=== PATIENT | female | born 1985 | race Caucasian/White ===

== ENCOUNTER 2020-04-29 07:17 | Outpatient (CLI) | payer OTHER, SELFPAY ==
[2020-04-29 08:00] LABS: Basophils Absolute Auto 0.1 K/mm3 (0.0-0.1); Basophils Percent Auto 1.2 % (0.2-1.2); Eosinophils Absolute Auto 0.2 K/mm3 (0-0.3); Eosinophils Percent Auto 2.6 % (0-4.4); Hematocrit 43.5 % (37.0-47.0); Immature Granulocyte Absolute 0.02 K/mm3 (0.00-0.031); Immature Granulocyte Percent A 0.4 % (0-0.5); Lymphocytes Absolute Auto 1.82 K/mm3 (0.9-3.2); Mean Corpuscular HGB Conc 32.2 g/dl (32-36); Mean Corpuscular Hemoglobin 25.8 pg (26-34); Mean Corpuscular Volume 80.1 fl (80-100); Mean Platelet Volume 9.1 fl (7.4-10.4); Monocytes Absolute Auto 0.4 K/mm3 (0.1-0.6); Monocytes Percent Auto 7.4 % (2.6-8.5); Neutrophils Absolute Auto 3.2 K/mm3 (1.3-6.7); Neutrophils Percent Auto 56.4 % (45.5-73.1); Platelet Count Result 253 k/mm3 (150-375); Red Blood Count 5.43 M/mm3 (4.2-5.4); Red Cell Distribution Width 13.7 % (11.5-14.5); White Blood Count 5.7 K/mm3 (4.5-10.0)
[2020-04-29 08:10] LABS: Alanine Aminotransferase 22 U/L (4-35); Albumin Level 4.2 g/dL (3.5-5.1); Alkaline Phosphatase 53 U/L (38-126); Anion Gap 10.2 mmol/L (7-16); Aspartate Amino Transferase 21 U/L (14-36); Bilirubin,Total 0.5 mg/dL (0.2-1.3); Blood Urea Nitrogen 15 mg/dL (7-17); Calcium 8.8 mg/dL (8.4-10.2); Carbon Dioxide 26 mmol/L (22-30); Chloride 103 mmol/L (98-107); Cholesterol 191 mg/dL (0-200); Estimated Glomerular Filt Rate > 60; Glucose 120 mg/dL (65-105); HDL Direct 39 mg/dL; Potassium 4.2 mmol/L (3.4-5.0); Sodium 135 mmol/L (137-145); Triglycerides 114 mg/dL (<150)
[2020-04-29 08:18] LABS: Hemoglobin A1C 5.5 % (<5.7)
[2020-04-29 08:21] LABS: LDL Cholesterol Direct 118 mg/dL
== END 2020-04-29 07:18 | disposition home or self-care (01) ==
LOC: ANHIMG 07:21 → ANHLAB 07:32
PROVIDERS: PCP Physician Assistant; Visit Provider Physician Assistant
DX: R73.09 Other abnormal glucose (principal); Z79.899 Other long term (current) drug therapy; Z13.220 Encounter for screening for lipoid disorders
CPT/HCPCS: 36415; 80053; 80061; 83036; 84443; 85025

== ENCOUNTER 2020-10-10 09:33 | Outpatient (CLI) | payer OTHER, SELFPAY | END 2020-10-10 09:34 | disposition home or self-care (01) | PROVIDERS: PCP Physician Assistant; Visit Provider Obstetrics & Gynecology | DX: Z32.00 Encounter for pregnancy test, result unknown (principal) | CPT/HCPCS: 36415; 84702 ==

== ENCOUNTER 2020-10-14 07:43 | Outpatient (CLI) | payer OTHER, SELFPAY ==
[2020-10-14 08:06] LABS: Hematocrit 40.1 % (37.0-47.0); Hemoglobin 13.4 g/dL (12.0-15.0); Mean Corpuscular HGB Conc 33.4 g/dl (32-36); Mean Corpuscular Hemoglobin 27.4 pg (26-34); Platelet Count Result 275 k/mm3 (150-375); Red Blood Count 4.89 M/mm3 (4.2-5.4); White Blood Count 10.1 K/mm3 (4.5-10.0)
[2020-10-14 09:04] LABS: HIV 1/2 Ab P24 Ag Result Negative (Negative)
[2020-10-14 09:22] LABS: Hepatitis B Surface Antigen Negative (Negative); Rubella IgG Antibody 17.4 IU/ML
[2020-10-14 10:24] LABS: Rapid Plasma Reagin Non-Reactive (NonReactive)
[2020-10-17 05:40] LABS: Amphetamines NEGATIVE ng/mL (<500); Barbiturates NEGATIVE ng/mL (<300); Benzodiazepines NEGATIVE ng/mL (<100); Cocaine Metabolite NEGATIVE ng/mL (<150); Marijuana Metabolite NEGATIVE ng/mL (<20); Methadone Metabolite NEGATIVE ng/mL (<100); Opiates NEGATIVE ng/mL (<100); Oxidant NEGATIVE mcg/mL (<200); pH 5.6 (4.5-9.0)
== END 2020-10-14 07:44 | disposition home or self-care (01) ==
PROVIDERS: PCP Physician Assistant; Visit Provider Obstetrics & Gynecology
DX: Z36.89 Encounter for other specified antenatal screening (principal)
CPT/HCPCS: 36415; 80299; 85027; 86592; 86703; 86762; 86850; 86900; 86901; 87086; 87340; G0432

== ENCOUNTER 2020-12-31 09:11 | Outpatient (CLI) | payer OTHER, SELFPAY ==
[2020-12-31 11:03] LABS: Hematocrit 35.4 % (37.0-47.0)
[2020-12-31 11:17] LABS: Glucose 1 Hour PP 50gm Dose 194 mg/dL
[2020-12-31 11:27] LABS: Hemoglobin A1C 5.1 % (<5.7)
[2020-12-31 11:56] LABS: HIV 1/2 Ab P24 Ag Result Negative (Negative)
== END 2020-12-31 09:12 | disposition home or self-care (01) ==
PROVIDERS: PCP Physician Assistant; Visit Provider Obstetrics & Gynecology
DX: Z34.90 Encounter for supervision of normal pregnancy, unspecified, unspecified trimester (principal); Z3A.00 Weeks of gestation of pregnancy not specified
CPT/HCPCS: 36415; 82947; 83036; 85014; 85018; 86703; G0432

== ENCOUNTER 2021-03-10 14:20 | Outpatient (RCR) | payer OTHER, SELFPAY ==
[2021-01-25 17:08] VITALS: BP 128/79; PULSE 70
[2021-01-31 17:21] VITALS: BP 124/73; PULSE 86
[2021-02-06 17:02] VITALS: BP 122/67; PULSE 78
[2021-02-09 17:07] VITALS: BP 129/78; PULSE 83
[2021-02-17 16:50] VITALS: BP 130/70; PULSE 77
[2021-02-21 17:15] VITALS: BP 123/75; PULSE 81
[2021-02-24 17:00] VITALS: BP 124/64; PULSE 79
[2021-02-28 12:13] VITALS: BP 127/71; PULSE 86
[2021-03-07 16:46] VITALS: BP 116/69; PULSE 71
[2021-03-10 16:41] VITALS: BP 131/75; PULSE 71
== END 2021-03-17 07:52 | disposition home or self-care (01) ==
LOC: ANHOBOP 14:20
PROVIDERS: PCP Physician Assistant; Visit Provider Obstetrics & Gynecology
DX: O24.419 Gestational diabetes mellitus in pregnancy, unspecified control (principal); Z3A.32 32 weeks gestation of pregnancy; Z3A.33 33 weeks gestation of pregnancy; Z3A.34 34 weeks gestation of pregnancy; Z3A.35 35 weeks gestation of pregnancy; Z3A.36 36 weeks gestation of pregnancy; Z3A.37 37 weeks gestation of pregnancy; Z3A.39 39 weeks gestation of pregnancy
CPT/HCPCS: 59025

== ENCOUNTER 2021-03-15 15:42 | Inpatient (IN) | payer OTHER, SELFPAY ==
[2021-03-15] VITALS (17 sets, daily range): BP systolic 122–156; BP diastolic 69–92; PULSE 73–102; RESP 18–20; TEMP 36.4–36.6; BMI 45.2
--- NOTE | ~2021-03-15 | XR_ITS ---
XR abdomen/kub 1V 03/17/2021 11:32 INDICATION: Flank pain TECHNIQUE: KUB COMPARISON: No prior studies for comparison. FINDINGS: Bowel gas pattern is normal. No IUD identified. There is no evidence of free air, mass, org anomegaly, ascites or obstruction. No abnormal calculi are seen. The bones appear intact. IMPRESSION: 1: No acute abdominal abnormality identified. No IUD visualized. Reviewed, dictated and finalized at location A.
[2021-03-15 16:17] LABS: Glucose Point of Care 91 mg/dl (65-105)
[2021-03-15] MEDS: DINOPROSTONE 10 MG VAG INSERT VAGINAL (16:21)
[2021-03-15 16:23] LABS: Basophils Absolute Auto 0.1 K/mm3 (0.0-0.1); Basophils Percent Auto 0.5 % (0.2-1.2); Eosinophils Absolute Auto 0.1 K/mm3 (0-0.3); Eosinophils Percent Auto 0.7 % (0-4.4); Hemoglobin 12.5 g/dL (12.0-15.0); Immature Granulocyte Absolute 0.05 K/mm3 (0.00-0.031); Immature Granulocyte Percent A 0.5 % (0-0.5); Lymphocytes Absolute Auto 1.43 K/mm3 (0.9-3.2); Lymphocytes Percent Auto 13.5 % (18.3-44.2); Mean Corpuscular HGB Conc 32.9 g/dl (32-36); Mean Corpuscular Volume 82.1 fl (80-100); Mean Platelet Volume 9.7 fl (7.4-10.4); Monocytes Absolute Auto 0.6 K/mm3 (0.1-0.6); Monocytes Percent Auto 5.6 % (2.6-8.5); Neutrophils Absolute Auto 8.4 K/mm3 (1.3-6.7); Neutrophils Percent Auto 79.2 % (45.5-73.1); Platelet Count Result 222 k/mm3 (150-375); Red Blood Count 4.63 M/mm3 (4.2-5.4); Red Cell Distribution Width 14.5 % (11.5-14.5); White Blood Count 10.6 K/mm3 (4.5-10.0)
--- NOTE | 2021-03-15 16:34 | LDADM ---
This patient, Kathie Sims, was admitted to Labor/Delivery/Recovery 108 on 03/15/21 at 15:42. Plans for labor, pain management and were discussed with patient. Patient/family oriented to hospital policies and general routines including ID bracelet, bed and alarms, visiting hours, pain management, procedures, bathroom and other care routines, personal items, smoking policy, room service/diet and guest tray routines, security routines, and visiting hours. Patient/Family are encouraged to report perceived risks to care and to ask questions if they do not understand what they are told or what they should do. See OBIX for further documentation.
--- NOTE | 2021-03-15 17:45 | WPDOBADMIT ---
Obstetrics - Admit Note Admission Note: record reviewed. Additions to the history and/or subsequent changes in the physical findings follow. 36 y/o at 39 5/7 weeks here for induction of labor. A2DM with good glycemic control on insulin. GBS neg. AVSS NST reactive TOCO: irregular contractions ABD soft, nontender, gravid, vertex EXT nontender Cervix 50/-3 per RN. Bedside ultrasound exam by me confirms cephalic presentation. A: IUP at term with A2DM, here for induction of labor. P: Cervidil Plan oxytocin afterward. Continue accuchecks. Anticipate .
[2021-03-15 21:21] LABS: Glucose Point of Care 82 mg/dl (65-105)
[2021-03-15 21:21] LABS: Glucose Point of Care 62 mg/dl (65-105)
[2021-03-15] MEDS: ACETAMINOPHEN 500 MG TABLET 1000 MG PO (22:02)
[2021-03-15 23:40] LABS: Glucose Point of Care 100 mg/dl (65-105)
[2021-03-16] VITALS (113 sets, daily range): BP systolic 113–150; BP diastolic 49–92; PULSE 54–130; RESP 16–20; TEMP 36.3–37.1; O2SAT 82–100
[2021-03-16 04:23] LABS: Glucose Point of Care 90 mg/dl (65-105)
[2021-03-16] MEDS: LACTATED RINGERS 1,000 ML 125 ML IV CONT ×2 (05:20→13:23)
[2021-03-16] MEDS: OXYTOCIN 30 UNITS/NS 500 ML 30 UNITS/500 ML BAG IV CONT (05:21)
[2021-03-16 06:49] LABS: Rapid Plasma Reagin Non-Reactive (NonReactive)
[2021-03-16 08:10] LABS: Glucose Point of Care 84 mg/dl (65-105)
--- NOTE | 2021-03-16 08:35 | PM.OBPNLAB ---
Pain Control Date/time seen: 03/16/21 8303 Comments: Had contractions all night. Had a glc 62, responded to treatment. Pelvic Exam Dilation (cm): 2 Effacement (%): 50 station: -2 Comments: AROM with clear fluid. IUPC placed. Contractions Contraction frequency: 3 Contraction pattern: Regular Status status: Category l Assessment and Plan Plan: continuous present management Comments: A: IUP at term. Good glycemic control, overall. P: Oxytocin. Continue accuchecks. Anticipate .
[2021-03-16] MEDS: fentaNYL CITRATE INJ (*CRX) 100 MCG/2 ML VIAL 50 MCG IV PUSH (08:44)
[2021-03-16 10:15] LABS: Glucose Point of Care 91 mg/dl (65-105)
--- NOTE | 2021-03-16 10:53 | WPDANESEPP ---
Anes - Eval Pre Procedure Date/Time: 03/16/21 10:53 Pre Op Diagnosis: induction of labor Patient Data Age: 36 Gender: F Height: 1.78 m Weight: 143 kg Last Vital Signs Temp 37.1 C 03/16/21 08:03 Pulse 75 03/16/21 10:51 Resp 18 03/15/21 23:19 BP 142/75 H 03/16/21 10:51 Pulse Ox 100 03/16/21 10:48 Allergies Allergy/AdvReac Type Severity Reaction Status Date / Time Sulfa (Sulfonamide Allergy Unknown Hives Verified 02/14/21 15:47 Antibiotics) sulfanilamide Allergy Unknown Hives Verified 02/14/21 15:47 Home Medications Medication Instructions Recorded Confirmed Type PNV cmb#95-ferrous fumarate-FA 1 tablet PO DAILY 01/25/21 03/15/21 History [] cetirizine [Zyrtec] 10 mg PO HS 01/25/21 03/15/21 History docusate sodium [Colace] 100 mg PO BID 01/25/21 03/15/21 History famotidine [Pepcid] 20 mg PO BID 01/25/21 03/15/21 History insulin NPH isoph U-100 human 20 unit SUBCUT QPM 01/25/21 03/15/21 History [Novolin N NPH U-100 Insulin] insulin NPH isoph U-100 human 50 unit SUBCUT QAM 01/25/21 03/15/21 History [Novolin N NPH U-100 Insulin] insulin regular human [Novolin R 20 unit SUBCUT QPM 01/25/21 03/15/21 History Regular U-100 Insuln] insulin regular human [Novolin R 30 unit SUBCUT QAM 01/25/21 03/15/21 History Regular U-100 Insuln] omeprazole 20 mg PO PRN PRN 01/25/21 03/15/21 History ondansetron HCl [Zofran] 4 mg PO Q6H PRN 01/25/21 03/15/21 History doxylamine succinate [Unisom 25 mg PO HS 01/31/21 03/15/21 History (doxylamine)] Laboratory Tests 03/15/21 03/15/21 03/15/21 16:13 16:14 16:14 WBC 10.6 K/mm3 H K/mm3 (4.5-10.0) RBC 4.63 M/mm3 M/mm3 (4.2-5.4) Hgb 12.5 g/dL g/dL (12.0-15.0) Hct 38.0 % % (37.0-47.0) MCV 82.1 fl fl (80-100) MCH 27.0 pg pg (26-34) MCHC 32.9 g/dl g/dl (32-36) RDW 14.5 % % (11.5-14.5) Plt Count 222 k/mm3 k/mm3 (150-375) MPV 9.7 fl fl (7.4-10.4) Immature Gran % (Auto) 0.5 % % (0-0.5) Neut % (Auto) 79.2 % H % (45.5-73.1) Lymph % (Auto) 13.5 % L % (18.3-44.2) [place] % (Auto) 5.6 % % (2.6-8.5) Eos % (Auto) 0.7 % % (0-4.4) Baso % (Auto) 0.5 % % (0.2-1.2) Lymph # (Auto) 1.43 K/mm3 K/mm3 (0.9-3.2) [place] # (Auto) 0.6 K/mm3 K/mm3 (0.1-0.6) Eos # (Auto) 0.1 K/mm3 K/mm3 (0-0.3) Baso # (Auto) 0.1 K/mm3 K/mm3 (0.0-0.1) Abs Immat Gran (auto) 0.05 K/mm3 H K/mm3 (0.00-0.031) Absolute Neuts (auto) 8.4 K/mm3 H K/mm3 (1.3-6.7) Absolute Nucleated RBC 0.0 K/mm3 K/mm3 (0.0-0.012) Nucleated RBC % 0.0 % % (0.0-0.2) POC Capillary Glucose 91 mg/dl mg/dl (65-105) RPR Non-reactive (NonReactive) Blood Type Antibody Screen 03/15/21 03/15/21 03/15/21 16:14 20:39 21:16 WBC RBC Hgb Hct MCV MCH MCHC RDW Plt Count MPV Immature Gran % (Auto) Neut % (Auto) Lymph % (Auto) [place] % (Auto) Eos % (Auto) Baso % (Auto) Lymph # (Auto) [place] # (Auto) Eos # (Auto) Baso # (Auto) Abs Immat Gran (auto) Absolute Neuts (auto) Absolute Nucleated RBC Nucleated RBC % POC Capillary Glucose 62 mg/dl L mg/dl 82 mg/dl mg/dl (65-105) (65-105) RPR Blood Type A Positive Antibody Screen Negative 03/15/21 03/16/21 03/16/21 23:34 04:07 08:01 WBC RBC Hgb Hct MCV MCH MCHC RDW Plt Count MPV Immature Gran % (
--- NOTE | 2021-03-16 12:45 | PM.OBPNLAB ---
Pain Control Date/time seen: 03/16/21 12:54 Comments: Comfortable with epidural. Accuchecks normal Pelvic Exam Dilation (cm): 5 Effacement (%): 50 station: -1 Contractions Contraction frequency: 3 Contraction pattern: Regular Status status: Category l Assessment and Plan Comments: Continue labor.
[2021-03-16 13:07] LABS: Glucose Point of Care 87 mg/dl (65-105)
--- NOTE | 2021-03-16 14:37 | PM.OBPRVD ---
OB - Delivery Note Procedure Delivery date: 03/16/21 Procedure: Induction of labor with events: Gestational Diabetes Induction method: per pitocin protocol and per cervidil protocol Delivery augmentation: rupture of membranes Delivery monitor: external FHT, external uterine and internal uterine Route of delivery: Laceration Description: Perineal - 1st Degree Delivery repair: vicryl (3-0) Specimen: Yes (cord blood, placenta) Quantitative Blood Loss (ml): 125 Anesthesia type: Epidural Disposition: PACU Complications: None Narrative: 36 y/o at 39 5/7 weeks gestation who presented to the hospital for induction of labor. Cervidil was placed overnight, then withdrawn the following morning. Oxytocin was administered intravenously. Amniotomy was performed with return of clear fluid. She received an epidural for pain control. Accuchecks remained normal throughout labor, with the final reading at 87 just before delivery. Her labor progressed and her cervix dilated completely. She pushed with good effort and delivered the 's head to the perineum. A loose nuchal cord was reduced and the body delivered. The nose and mouth were bulb suctioned. After a delay, the cord was clamped and cut. The infant was handed off the field. Cord blood was collected. The placenta delivered spontaneously and was grossly normal in appearance. The usual 3 vessel cord was noted. A first degree midline perineal laceration was sustained. This was reapproximated using 3 0 Vicryl in running fashion. Excellent hemostasis resulted as did excellent reapproximation of the normal anatomy. A small 2x1cm perineal hematoma was noted just to the right of midline. This was not expanding, seemed stable. Needle and instrument counts were correct. The patient was taken to recovery room in stable condition. The went to the nursery in stable condition. I was present and scrubbed for the entire delivery. Baby Date of : 03/16/21 Time of : 14:13 Weeks of gestation at delivery: 39 Infant gender: Male Weight (pounds): 7 Weight (ounces): 14 presentation: vertex position: Right Occiput Anterior Placenta delivery description: Spontaneous and Normal Configuration cord vessel description: 3 Vessels, Nuchal Cord and Delayed Cord Clamping score one minute: 9 score five minutes: 9
--- NOTE | 2021-03-16 14:42 | PM.OBDSVD ---
DS: Admitting Diagnosis Admitting Diagnosis Admitting Diagnosis: IUP at 39 5/7 weeks A2DM DS: Discharge Diagnosis Discharge Diagnosis (1) Intrauterine : Code(s): Z34.90 - Encounter for supervision of normal , unspecified, unspecified trimester Status: Acute (2) Morbid obesity: Code(s): E66.01 - Morbid (severe) obesity due to excess calories Status: Acute (3) Gestational diabetes: Code(s): O24.419 - Gestational diabetes mellitus in , unspecified control Status: Inactive OB - DS: Summary OB Procedures : None OB Procedures Intrapartum: Spontaneous Vag Delivery OB Procedures: : None DS: Data Data Completed and Pending Labs on day of discharge: Labs from last 24 hours 03/16/21 03/16/21 03/16/21 12:57 10:13 08:01 WBC RBC Hgb Hct MCV MCH MCHC RDW Plt Count MPV Immature Gran % (Auto) Neut % (Auto) Lymph % (Auto) [place] % (Auto) Eos % (Auto) Baso % (Auto) Lymph # (Auto) [place] # (Auto) Eos # (Auto) Baso # (Auto) Abs Immat Gran (auto) Absolute Neuts (auto) Absolute Nucleated RBC Nucleated RBC % POC Capillary Glucose 87 91 84 RPR Blood Type Antibody Screen 03/16/21 03/15/21 03/15/21 04:07 23:34 21:16 WBC RBC Hgb Hct MCV MCH MCHC RDW Plt Count MPV Immature Gran % (Auto) Neut % (Auto) Lymph % (Auto) [place] % (Auto) Eos % (Auto) Baso % (Auto) Lymph # (Auto) [place] # (Auto) Eos # (Auto) Baso # (Auto) Abs Immat Gran (auto) Absolute Neuts (auto) Absolute Nucleated RBC Nucleated RBC % POC Capillary Glucose 90 100 82 RPR Blood Type Antibody Screen 03/15/21 03/15/21 03/15/21 20:39 16:14 16:14 WBC RBC Hgb Hct MCV MCH MCHC RDW Plt Count MPV Immature Gran % (Auto) Neut % (Auto) Lymph % (Auto) [place] % (Auto) Eos % (Auto) Baso % (Auto) Lymph # (Auto) [place] # (Auto) Eos # (Auto) Baso # (Auto) Abs Immat Gran (auto) Absolute Neuts (auto) Absolute Nucleated RBC Nucleated RBC % POC Capillary Glucose 62 L RPR Non-reactive Blood Type A Positive Antibody Screen Negative 03/15/21 03/15/21 16:14 16:13 WBC 10.6 H RBC 4.63 Hgb 12.5 Hct 38.0 MCV 82.1 MCH 27.0 MCHC 32.9 RDW 14.5 Plt Count 222 MPV 9.7 Immature Gran % (Auto) 0.5 Neut % (Auto) 79.2 H Lymph % (Auto) 13.5 L [place] % (Auto) 5.6 Eos % (Auto) 0.7 Baso % (Auto) 0.5 Lymph # (Auto) 1.43 [place] # (Auto) 0.6 Eos # (Auto) 0.1 Baso # (Auto) 0.1 Abs Immat Gran (auto) 0.05 H Absolute Neuts (auto) 8.4 H Absolute Nucleated RBC 0.0 Nucleated RBC % 0.0 POC Capillary Glucose 91 RPR Blood Type Antibody Screen Discharge Plan Discharge Attending physician on discharge: Amaury Veronica Discharging Clinician: Amaury Veronica Patient Disposition: Home, Self-Care Activity: pelvic rest Diet: regular Discharge Instructions: Call or return if temperature above 100.4? F, increased abdominal pain, increased vaginal bleeding or any new problems. Stand Alone Forms: General Discharge Information Follow-up/Referrals: Amaury Veronica MD [Physician] - 6 Weeks Discharge Medications: New ibuprofen 600 mg tablet 600 mg PO Q6H PRN (Reason: cramps) Qty: 30 RF: 0 No Action Novolin R Regular U-100 Insuln 100 unit/mL Solution 30 unit SUBCUT QAM RF: 0 Novolin R Regular U-100 Insuln 100 unit/mL Solution 20 unit SUBCUT QPM RF: 0 Novolin N NPH U-100 Insulin 100 unit/mL Suspension 20 unit SUBCUT QPM RF: 0 Novolin N NPH U-100 Insulin 100 unit/mL Suspension 50 unit subcut QAM RF: 0 ondansetron HCl [Zofran] 4 mg Tablet 4 mg PO Q6H PRN (Reason: Nausea) RF: 0 famotidine [Pepcid] 20 mg Tablet 20 mg PO BID
[2021-03-16] MEDS: OXYTOCIN 30 UNITS/NS 500 ML 30 UNITS/500 ML BAG 125 UNITS IV CONT (14:53)
[2021-03-16] MEDS: IBUPROFEN 600 MG TABLET PO (17:00)
[2021-03-16] MEDS: WITCH HAZEL 40 PADS 1 PAD TOPICAL (17:02)
[2021-03-16] MEDS: BENZOCAINE 20% AER SPR (*SP) 56 GM CAN 1 SPRAY TOPICAL (17:02)
[2021-03-17 04:44] VITALS: BP 136/87; PULSE 70; RESP 16; TEMP 36.6; O2SAT 99
[2021-03-17 04:56] LABS: Hematocrit 35.6 % (37.0-47.0); Hemoglobin 11.6 g/dL (12.0-15.0)
[2021-03-17 08:35] VITALS: BP 120/74; PULSE 84; RESP 16; TEMP 37.1; O2SAT 98
[2021-03-17] MEDS: IBUPROFEN 600 MG TABLET PO (08:38)
[2021-03-17 12:03] VITALS: BP 131/77; PULSE 72; RESP 16; TEMP 36.8; O2SAT 97
--- NOTE | 2021-03-17 18:54 | PM.OBPNVD ---
OB - PN: Subj Subjective Date/time seen: 03/17/21 18:54 Narrative: Pain OK. Desires circumcision for son. OB - PN: Obj Data Labs CBC & Chem 7: 03/17/21 03:51 Labs: Laboratory Results - last 24 hr 03/17/21 03:51 Hgb 11.6 L Hct 35.6 L Imaging Radiologist's impression: Impressions Abdomen X-Ray 03/17/21 11:33 IMPRESSION: 1: No acute abdominal abnormality identified. No IUD visualized. OB - PN A/P Plan Comments: A: PPD#1, doing well. P: Routine care. Reviewed circumcision. She would like DMPA before discharge for contraception. Exam Psych: Other: AVSS ABD soft, nontender, fundus firm EXT nontender
[2021-03-17 18:57] VITALS: BP 130/85; PULSE 64; RESP 18; TEMP 36.2; O2SAT 100
[2021-03-18] MEDS: MULTIVIT/MIN/PREN/FOL AC/IRON TABLET 1 TAB PO (07:41)
[2021-03-18] MEDS: DOCUSATE SODIUM 100 MG CAPSULE PO (07:41)
[2021-03-18] MEDS: IBUPROFEN 600 MG TABLET PO ×2 (07:41)
[2021-03-18] MEDS: medroxyPROGESTERone ACETATE IM 150 MG/ML SYR IM (07:42)
[2021-03-18 08:00] VITALS: BP 136/77; PULSE 84; RESP 18; TEMP 37.1; O2SAT 99
--- NOTE | 2021-03-18 08:36 | PM.OBPNVD ---
OB - PN: Subj Subjective Date/time seen: 03/18/21 08:36 Narrative: Pain OK. Would like to go home. OB - PN: Obj Data Labs CBC & Chem 7: 03/17/21 03:51 Imaging Radiologist's impression: Impressions Abdomen X-Ray 03/17/21 11:33 IMPRESSION: 1: No acute abdominal abnormality identified. No IUD visualized. OB - PN A/P Plan Comments: A: PPD#2, doing well. P: Home to f/u 6 weeks. Exam Psych: Other: AVSS ABD soft, nontender, fundus firm EXT nontender
[2021-03-20 09:59] VITALS: BP 131/80; PULSE 68; RESP 20; TEMP 37.1; O2SAT 100
== END 2021-03-18 13:14 | disposition home or self-care (01) | DRG 807 ==
LOC: ANHLDR 03-16 14:44 → ANHOB2 03-16 17:11
PROVIDERS: Admitting Provider Obstetrics & Gynecology; PCP Physician Assistant; Visit Provider Obstetrics & Gynecology
DX: O24.424 Gestational diabetes mellitus in childbirth, insulin controlled (principal); Z37.0 Single live birth; O99.214 Obesity complicating childbirth; E66.01 Morbid (severe) obesity due to excess calories; O70.0 First degree perineal laceration during delivery; O69.81X0 Labor and delivery complicated by cord around neck, without compression, not applicable or unspecified; Z3A.39 39 weeks gestation of pregnancy
CPT/HCPCS: 36415; 74018; 82948; 85014; 85018; 85025; 86592; 86850; 86900; 86901; 88307; A9270; J1050; J2590; J2795; J3010; J7120

== ENCOUNTER 2021-04-30 15:31 | Emergency (ER) | payer OTHER, SELFPAY ==
--- NOTE | ~2021-04-30 | XR_ITS ---
EXAMINATION: XR chest 2V DATE: 04/30/2021 16:18 INDICATION: Back spasms and chest pain TECHNIQUE: PA and lateral views of the chest are obtained. COMPARISON: 09/20/2004 FINDINGS: The lungs are free of acute opacities. There is no pleural effusion or pneumothorax. The ca rdiomediastinal silhouette is normal. There is mild thoracic spondylosis. IMPRESSION: 1. No acute cardiopulmonary abnormality. Reviewed, dictated and finalized at location A.
--- NOTE | 2021-04-30 15:56 | ECG_ITS ---
Measurements Intervals [place] Rate: 76 P: 21 LA: 145 QRS: 12 QRSD: 96 T: 4 QT: 381 QTc: 431 Interpretive Statements SINUS RHYTHM CONSIDER INFERIOR INFARCT, AGE INDETERMINATE BORDERLINE T WAVE ABNORMALITY- ANTERIOR LEADS ABNORMAL ECG Electronically Signed On 04-30-2021 17:48:30 CDT by Eduardo Burnett D.O.
[2021-04-30 15:57] VITALS: BP 147/91; PULSE 83; RESP 16; TEMP 36.9; O2SAT 100
[2021-04-30 16:32] LABS: Basophils Absolute Auto 0.1 K/mm3 (0.0-0.1); Basophils Percent Auto 0.6 % (0.2-1.2); Eosinophils Absolute Auto 0.2 K/mm3 (0-0.3); Eosinophils Percent Auto 1.7 % (0-4.4); Hematocrit 43.3 % (37.0-47.0); Hemoglobin 14.1 g/dL (12.0-15.0); Immature Granulocyte Absolute 0.03 K/mm3 (0.00-0.031); Immature Granulocyte Percent A 0.3 % (0-0.5); Lymphocytes Percent Auto 15.5 % (18.3-44.2); Mean Corpuscular HGB Conc 32.6 g/dl (32-36); Mean Corpuscular Hemoglobin 26.5 pg (26-34); Mean Corpuscular Volume 81.4 fl (80-100); Mean Platelet Volume 8.6 fl (7.4-10.4); Monocytes Absolute Auto 0.5 K/mm3 (0.1-0.6); Monocytes Percent Auto 5.4 % (2.6-8.5); Neutrophils Absolute Auto 6.9 K/mm3 (1.3-6.7); Neutrophils Percent Auto 76.5 % (45.5-73.1); Platelet Count Result 266 k/mm3 (150-375); Red Blood Count 5.32 M/mm3 (4.2-5.4); Red Cell Distribution Width 13.4 % (11.5-14.5)
[2021-04-30 16:42] LABS: Anion Gap 12 mmol/L (8-16); Blood Urea Nitrogen 14 mg/dL (7-17); Calcium 9.4 mg/dL (8.4-10.2); Carbon Dioxide 22 mmol/L (22-30); Chloride 105 mmol/L (98-107); Estimated CRCL calculation 111 ml/min; Estimated Glomerular Filt Rate > 60; Glucose 106 mg/dL (65-110); Potassium 4.2 mmol/L (3.4-5.0); Sodium 139 mmol/L (137-145)
[2021-04-30 16:54] LABS: Troponin I < 0.012 ng/mL (0.000-0.034)
[2021-04-30 17:28] VITALS: BP 155/100; PULSE 87; RESP 20; O2SAT 100
[2021-04-30 18:19] VITALS: BP 156/92; PULSE 78; RESP 20; O2SAT 100
[2021-04-30 18:43] VITALS: PULSE 77; RESP 20; O2SAT 99
[2021-04-30 18:54] LABS: Prothrombin Time 12.6 Seconds (11.1-14.7)
[2021-04-30 18:55] LABS: Partial Thromboplastin Time 28.5 SECONDS (22.3-36.8)
--- NOTE | 2021-04-30 19:02 | ED.GENADULT ---
HPI - General Adult General Chief complaint: Back Pain/Injury Stated complaint: back spasms Time Seen by Provider: 04/30/21 18:27 Source: patient and RN notes reviewed Mode of arrival: ambulatory Limitations: no limitations History of Present Illness HPI narrative: Getting patient is a 36-year-old female who presents with tenderness of the left upper thoracic region rating to the chest that began last night notes aching pain worse with activity and movement denies injury or trauma similar occurrence does have a new baby that she has been holding frequently on arrival she is in no distress has not taken anything for her symptoms Related Data Allergies Allergy/AdvReac Type Severity Reaction Status Date / Time Sulfa (Sulfonamide Allergy Unknown Hives Verified 04/30/21 17:36 Antibiotics) sulfanilamide Allergy Unknown Hives Verified 04/30/21 17:36 Review of Systems Review of Systems: All systems reviewed & are unremarkable except as noted in HPI and below PMFSH Past Medical History Medical History Gestational diabetes Intrauterine Morbid obesity Family History Family History (Updated 03/15/21 @ 16:52 by Nivia Claudio RN) Father Patient's father is Family history of premature coronary heart disease, Onset Age: 35 Autopsy didn't show any coronary heart disease; COD was sudden massive asphyxiation Mother Diabetes mellitus Family history of obesity Hypertension Grandparent Family history of heart disease in male family member before age 55 Diabetes mellitus Family history of malignant neoplasm of urinary bladder Hypertension Cerebrovascular accident Other Family history of arthritis Family history of cardiovascular disease Family history of gout Family history of multiple sclerosis Family history of renal failure Social History Social History Smoking status: Never smoker Second hand tobacco smoke exposure: No Alcohol intake: current Substance use: never Gender identity (if verbalized by the patient): Female Spiritual care concerns: No Exam Narrative: GENERAL: Well-appearing, well-nourished, and in no acute distress. HEAD: Normocephalic, atraumatic. EYES: PERRLA and EOMI. ENT: Nares clear, no rhinorrhea or epistaxis. Mucous membranes moist. CHEST: Clear to auscultation. No respiratory distress. No wheezes rales or rhonchi HEART: Regular rate and rhythm. No murmur heard. Normal peripheral pulses. ABDOMEN: Soft, nontender, nondistended EXTREMITIES: Normal range of motion. No edema. Tenderness of the left upper thoracic region in the musculature no deformities noted SKIN: Warm, dry, no rash. NEURO: No focal deficits. Alert and oriented x3. Cranial nerves II through XII grossly intact PSYCH: Normal mood and affect. Course Course Emergency Course: Patient in the room no distress aware of case findings treatment plan and diagnosis agreeing to follow-up as instructed felt appropriate for outpatient reevaluation Vital Signs Vital signs: Vital Signs Temperature 98.4 F 04/30/21 15:57 Pulse Rate 83 04/30/21 15:57 Respiratory Rate 16 04/30/21 15:57 Blood Pressure 147/91 H 04/30/21 15:57 Pulse Oximetry 100 04/30/21 15:57 Temperature 98.4 F 04/30/21 15:57 Pulse Rate 77 04/30/21 18:43 Respiratory Rate 20 04/30/21 18:43 Blood Pressure 156/92 H 04/30/21 18:19 Pulse Oximetry 99 04/30/21 18:43 Medical Decision Making MDM Narrative Medical decision making narrative: Patients EKGs and labs are without significant high risk changes. Cardiac risk factors were reviewed. Patient is felt likely to be low risk for ACS and reasonable for further risk stratification testing as an outpatient. Pain was not sudden or maximal in onset without tearing or ripping. quality. No other signs or symptoms to suggest aort
--- NOTE | 2021-04-30 19:35 | PC.NURSE ---
60 mg IM toradol given at 1900 at right ventrogluteal sight. unable to chart due to error saying, Dr. blackburn still working on order, who is no longer here. Charge nurse made aware.
[2021-04-30 19:36] VITALS: BP 152/95; PULSE 77; RESP 18; O2SAT 99
== END 2021-04-30 19:17 | disposition home or self-care (01) ==
PROVIDERS: Emergency Provider Emergency Medicine; PCP Physician Assistant
DX: M54.6 Pain in thoracic spine (principal); E66.01 Morbid (severe) obesity due to excess calories; Z68.41 Body mass index [BMI] 40.0-44.9, adult; R94.31 Abnormal electrocardiogram [ECG] [EKG]
CPT/HCPCS: 36415; 71046; 80048; 84484; 85025; 85610; 85730; 93005; 99284

== ENCOUNTER 2021-07-03 08:14 | Outpatient (CLI) | payer OTHER, SELFPAY ==
[2021-07-03 08:55] LABS: Hematocrit 43.5 % (37.0-47.0); Hemoglobin 14.4 g/dL (12.0-15.0); Mean Corpuscular HGB Conc 33.1 g/dl (32-36); Mean Corpuscular Volume 81.5 fl (80-100); Mean Platelet Volume 8.7 fl (7.4-10.4); Platelet Count Result 328 k/mm3 (150-375); Red Blood Count 5.34 M/mm3 (4.2-5.4); Red Cell Distribution Width 13.2 % (11.5-14.5); White Blood Count 6.7 K/mm3 (4.5-10.0)
[2021-07-03 09:03] LABS: Cholesterol 160 mg/dL (0-200); HDL Direct 41 mg/dL; Triglycerides 94 mg/dL (<150)
[2021-07-03 09:06] LABS: Alanine Aminotransferase 37 U/L (4-35); Albumin Level 4.8 g/dL (3.5-5.1); Alkaline Phosphatase 65 U/L (38-126); Anion Gap 12 mmol/L (8-16); Aspartate Amino Transferase 34 U/L (14-36); Bilirubin,Total 0.4 mg/dL (0.2-1.3); Blood Urea Nitrogen 12 mg/dL (7-17); Calcium 9.4 mg/dL (8.4-10.2); Carbon Dioxide 24 mmol/L (22-30); Chloride 106 mmol/L (98-107); Estimated Glomerular Filt Rate 56; Glucose 121 mg/dL (65-110); Potassium 4.3 mmol/L (3.4-5.0); Sodium 142 mmol/L (137-145)
[2021-07-03 09:13] LABS: LDL Cholesterol Direct 92 mg/dL
[2021-07-03 09:19] LABS: Hemoglobin A1C 5.2 % (<5.7)
== END 2021-07-03 08:15 | disposition home or self-care (01) ==
LOC: ANHLAB 08:19
PROVIDERS: PCP Physician Assistant; Visit Provider Physician Assistant
DX: Z00.00 Encounter for general adult medical examination without abnormal findings (principal); Z86.32 Personal history of gestational diabetes; Z13.220 Encounter for screening for lipoid disorders
CPT/HCPCS: 36415; 80053; 80061; 83036; 84443; 85027

== ENCOUNTER 2021-09-13 01:34 | Day surgery (SDC) | payer OTHER, SELFPAY ==
[2021-09-05 15:39] VITALS: BMI 41.7
--- NOTE | 2021-09-05 15:45 | PC.NURSE ---
Report to the Outpatient Waiting Room, entrance under the green pavilion located off [facility], at time _1000_ on date _09/13/21__. OR Time: _1200_. - You and your visitor will be asked a series of questions to screen for COVID 19 for your protection. - A mask is required within the hospital. - Only one visitor is allowed at this time. Patient visitors will be guided where to wait when not with patient. Preoperative COVID Testing Requirements: No COVID Test needed if: (proof is required; if not received patient will have Rapid Test prior to entry) - Patient has received COVID Vaccine at least 14 days prior to procedure date or - Patient has positive COVID test result within last 90 days of surgery date. COVID Test needed if above criteria is not met If not COVID vaccinated a COVID test must be conducted within 72 hours of surgery and patient is asked to isolate self from time of testing until procedure. You will go to the [facility] for your COVID testing. The [facility] is located at the corner of [address] [facility]. You will only be called if COVID results are positive and your surgeon may reschedule your elective surgery date. Patients may have clear liquids (water, carbonated beverages, clear teas, apple juice) until 3 hours prior to surgery (0900 AM) with a maximum of 20 ounces. - No food from midnight until time of surgery - Infants may have breast milk until 4 hours before surgery, formula 6 hours prior to surgery. - Children will be allowed to drink immediately following surgery. If applicable, please bring a bottle or sippy cup to assist with drinking. Juice, water, soda, and popsicles are readily available. For infants on formula, please bring formula the day of surgery. Pacifiers are allowed. Take the following medications with a SIP of water the morning of surgery: __BUPROPION Medications to discontinue per physician MULTIVITAMIN Date to take last dose 09/09/21 Please no make-up, nail turkish, hairspray, perfume, deodorant, or body powder the day of surgery. No jewelry (including any body piercings) or valuables the day of surgery, leave them at home. Please take a shower or bath the night before, or the morning of, surgery with an antibacterial soap. Wear comfortable, loose fitting clothing. Children are encouraged to wear pajamas. - Jewelry must be removed prior to entering the operating room. Rings and piercings that are not removed may be cut off. - The hospital will not accept responsibility for valuables. - Please leave all valuables, including medications, at home the day of surgery. If you are going home after surgery, a licensed school bus driver/mechanic must drive you home. - NO public transportation without another adult. - We recommend that an adult stay with you for 24 hours following discharge. - We also recommend that you do not drive, make important decision, drink alcoholic beverages, or take any drugs that were not prescribed by your health care provider for at least 24 hours after your discharge time. For Pediatric surgeries, we recommend two adults accompany the child home (only one inside the building at this time). Follow any additional instructions given to you from your surgeon. Telephone instructions given to ___PT and asked if any additional questions and then verbalized understanding. Patient advised to call surgeon office or pre surgery nurse liaison [phone] if any additional questions.
[2021-09-13] VITALS (10 sets, daily range): BP systolic 141–149; BP diastolic 77–111; PULSE 85–107; RESP 12–18; TEMP 36.3–36.9; O2SAT 100
[2021-09-13] MEDS: LACTATED RINGERS 1,000 ML 30 ML IV CONT ×2 (10:26→13:32)
[2021-09-13] MEDS: ACETAMINOPHEN 500 MG TABLET 1000 MG PO (10:28)
[2021-09-13] MEDS: KETOROLAC 15 MG/ML VIAL (*BKC) IV PUSH (10:28)
--- NOTE | 2021-09-13 10:49 | P.PNAN_ITS ---
Anes - Initial Pre Proc Eval Procedure: Operation Date: 09/13/21 12:00 Proposed Procedures p Bilateral Laparoscopic Salpingectomy - Amaury Veronica MD s Hysteroscopy, Dilation and Curettage with Natalie Endometrial Ablation - Amaury Veronica MD Date/Time: 09/13/21 10:49 Surgeon: Amaury Veronica MD Pre Op Diagnosis: desires sterilization, irregular bleeding Patient Data Age: 36 Gender: F Height: 1.78 m Weight: 131.81 kg Allergies Allergy/AdvReac Type Severity Reaction Status Date / Time Sulfa (Sulfonamide Allergy Unknown Hives Verified 09/05/21 15:36 Antibiotics) sulfanilamide Allergy Unknown Hives Verified 09/05/21 15:36 Home Medications Medication Instructions Recorded Confirmed Type bupropion HCl 150 mg PO BID 09/05/21 09/05/21 History cetirizine [Zyrtec] 10 mg PO HS 09/05/21 09/05/21 History multivitamin [Multi-Vitamin] 1 tablet QAM 09/05/21 09/05/21 History Patient hx anesthesia problems: none Family hx anesthesia problems: none Results Review: All pre-operative results and documents have been reviewed as part of the pre-operative evaluation. [facility] Past Medical History Medical History Anxiety Hx of migraines Family History Family History Father Patient's father is Family history of premature coronary heart disease, Onset Age: 35 Autopsy didn't show any coronary heart disease; COD was sudden massive asphyxiation Mother Diabetes mellitus Family history of obesity Hypertension Grandparent Family history of heart disease in male family member before age 55 Diabetes mellitus Family history of malignant neoplasm of urinary bladder Hypertension Cerebrovascular accident Other Family history of arthritis Family history of cardiovascular disease Family history of gout Family history of multiple sclerosis Family history of renal failure Social History Social History Smoking status: Never smoker Second hand tobacco smoke exposure: No Alcohol intake: never Substance use: never Substance use type: does not use Living arrangements: with family Additional living arrangements comments: LIVES WITH CHILDEREN Gender identity (if verbalized by the patient): Female Spiritual care concerns: No Anes - Eval Final PreProcedure Day of Procedure 09/13/21 10:49 Patient weight: overweight Heart: regular rate and rhythm Lungs: clear to auscultation Airway: Mallampati scale class II Neurological: alert and oriented Last oral intake: >/= 8 hours ASA classification: II Emergent: no Anesthetic plan: proceed Anesthesia type and monitoring: general ETT and standard monitoring Results Review: All pre-operative results and documents have been reviewed as part of the pre-operative evaluation. Informed Consent: The patient's anesthetic plan and its attendant risks and benefits were discussed with the patient/family/POA. Questions were solicited and answers provided to the satisfaction of the patient/family/POA.
--- NOTE | 2021-09-13 11:54 | PM.IMHP ---
H&P: HPI History of Present Illness Date/Time: 09/13/21 11:54 36 y/o with heavy menses. She also desires permanent contraception. Chief Complaint: Heavy periods, control Review of Systems Review of Systems: All systems reviewed & are unremarkable except as noted in HPI and below PMFSH Past Medical History Medical History Anxiety Hx of migraines Family History Family History Father Patient's father is Family history of premature coronary heart disease, Onset Age: 35 Autopsy didn't show any coronary heart disease; COD was sudden massive asphyxiation Mother Diabetes mellitus Family history of obesity Hypertension Grandparent Family history of heart disease in male family member before age 55 Diabetes mellitus Family history of malignant neoplasm of urinary bladder Hypertension Cerebrovascular accident Other Family history of arthritis Family history of cardiovascular disease Family history of gout Family history of multiple sclerosis Family history of renal failure Social History Social History Smoking status: Never smoker Second hand tobacco smoke exposure: No Alcohol intake: never Substance use: never Substance use type: does not use Living arrangements: with family Additional living arrangements comments: LIVES WITH CHILDEREN Gender identity (if verbalized by the patient): Female Spiritual care concerns: No Meds Home Medications and Allergies Home Medications Medication Instructions Recorded Confirmed Type bupropion HCl 150 mg PO BID 09/05/21 09/13/21 History cetirizine [Zyrtec] 10 mg PO HS 09/05/21 09/13/21 History multivitamin [Multi-Vitamin] 1 tablet QAM 09/05/21 09/13/21 History Allergies Allergy/AdvReac Type Severity Reaction Status Date / Time Sulfa (Sulfonamide Allergy Unknown Hives Verified 09/13/21 10:58 Antibiotics) sulfanilamide Allergy Unknown Hives Verified 09/13/21 10:58 Vital Signs Vital Signs - 24 hr 09/13/21 11:00 Temperature 36.9 C Pulse Rate 90 Respiratory Rate 18 Blood Pressure 146/96 H Pulse Oximetry 100 Exam Const: Orientation/consciousness: patient oriented x3 Other: Well-developed, well-nourished female in no acute distress. Neck: Thyroid: thyroid normal Lymphatic: no lymphadenopathy noted (in neck, axilla or inguinal nodes) Resp: Effort & Inspection: normal respiratory effort Auscultation: clear to auscultation bilaterally Cardio: Rate: regular rate Rhythm: regular rhythm Heart sounds: S1 normal heart sound present and S2 normal heart sound present GI: Other: ABD: Soft, nontender, nondistended. No guarding or rebound tenderness. No hepatosplenomegaly. : General: Yes no CVA tenderness Other: External genitalia: normal female hair distribution, without lesion. Urethral meatus: no lesion, non prolapsed. Bladder: no mass, nontender Vagina: well-estrogenized, without lesion or discharge. No cystocele or rectocele. Cervix: no lesion or discharge. Uterus: small, anteverted, freely mobile, nontender Adnexa: no mass or tenderness. Anus/perineum: no lesions, nontender Back/Spine/Pelvis: Back: no CVA tenderness Skin: General skin exam: normal color and no rashes or lesions noted Neuro: General: patient oriented x3 Extrem: Other: Extremities: nontender with no edema Psych: Mental Status: mental status grossly normal Affect: normal affect Assessment and Plan Assessment and plan (1) Unwanted fertility: Code(s): Z30.09 - Encounter for other general counseling and advice on contraception Status: Acute Assessment and Plan: A: Desired sterility. Menorrhagia. P: We have reviewed treatment options, including medical as well as surgical approaches. She prefers the latter. I
--- NOTE | 2021-09-13 12:07 | WPDHPUPDATE1 ---
History and Physical Update Update Date/Time: 09/13/21 12:07 History and Physical has been reviewed, including an updated exam of the patient. There are NO changes in the patient's condition. Risks, benefits, and alternatives have been discussed and questions answered. Patient agrees to proceed with procedure.
--- NOTE | 2021-09-13 13:27 | W.PM.PROC2 ---
Procedure Note - Detailed Date of Procedure 09/13/21 Pre-op Diagnosis desires sterilization, menorrhagia Post-op Diagnosis same Procedure Performed laparoscopic bilateral salpingectomies biopsy of peritoneum of right uterosacral ligament cautery of apparent endometriosis implant hysteroscopy dilation and sharp curettage endometrial ablation with Natalie Surgeon Amaury Veronica MD Anesthesia general and local (1% lidocaine paracervical block) Findings Normal-appearing uterus, tubes and ovaries. The anterior cul de sac was unremarkable. The right uterosacral ligament demonstrated a focus of apparent endometriosis just adjacent to the uterus. Otherwise, the posterior cul-de-sac was unremarkable. The endometrial cavity was unremarkable. Both tubal ostia were seen. The uterus sounded to a depth of 10 cm with a cervical length of 3 cm. Description of Procedure The patient was taken to the operating room where general endotracheal anesthesia was administered. She was prepared and draped in the usual sterile fashion in dorsal lithotomy position. The bladder was drained with a red rubber catheter. A sterile speculum was placed into the vagina. The anterior lip of the cervix was grasped with a single-tooth tenaculum. The acorn uterine manipulator was placed. The speculum was withdrawn. Gloves were changed and attention was turned the abdomen. An infraumbilical skin incision was made with a scalpel. The abdomen was tented and a 5mm bladeless trocar was advanced under direct laparoscopic visualization. Pneumoperitoneum was administered using carbon dioxide gas. A survey of the pelvis and abdomen revealed the findings noted above. A second skin incision was made in the right lower quadrant and a second 5 mm bladeless trocar was advanced under direct laparoscopic visualization. A third 10 mm port was similarly placed in the left lower quadrant. The pelvis was inspected with the findings noted above. The apparent endometriosis implant in the posterior cul-de-sac / right uterosacral ligament was biopsied and passed off to be sent to pathology. The area was cauterized using electrocautery. The right Fallopian tube was elevated and the Ligasure device was used to divide the mesentery and amputate the tube. It was passed off to be sent to pathology. The left side was similarly dissected. Hemostasis was excellent. The fascia of the LLQ incision was reapproximated using a single interrupted suture of 0 Vicryl. The ports were withdrawn. The gas was allowed to escape. The skin incisions were reapproximated using interrupted subcuticular sutures of 4 0 Vicryl. Dermaflex was applied externally. Attention was redirected to the vagina, where the acorn manipulator was removed and the speculum reintroduced. Ten mL of 1% lidocaine was administered in a paracervical block. The cervix was then gently dilated using Hegar dilators until an 8 mm dilator could be passed. Hysteroscopy was performed using sterile saline as a distention medium. Findings are as noted above. Sharp curettage was then performed, and endometrial curettings were collected on a Telfa pad and passed off to be sent to pathology. Finally, the the Natalie device was advanced and endometrial ablation commenced without difficulty. The device was withdrawn and a second look was taken using the hysteroscope. Excellent coverage of the endometrial cavity was noted. The tenaculum was removed. Hemostasis was excellent. Sponge, lap, needle and instrument counts were correct. The patient was awakened and taken to the recovery room in stable condition. I was present and scrubbed through the entire procedure. Implants None Estimated Blood Loss 5 Drains No Packing No Pathology yes (Bilateral fallopian tubes, biopsy of peritoneum of right uterosacral ligament, endometrial curettings) Complications None Condition stable Disposition PACU
[2021-09-13] MEDS: fentaNYL CITRATE INJ (*CRX) 100 MCG/2 ML VIAL 25 MCG IV PUSH ×4 (13:46→14:22)
[2021-09-13] MEDS: ONDANSETRON INJ 4 MG/2 ML VIAL IV PUSH (14:03)
[2021-09-13] MEDS: oxyCODONE HCL (*CRX) 5 MG TAB IR PO (15:13)
--- NOTE | 2021-09-13 15:50 | SUR.PHASEII ---
PATIENT READY TO DISCHARGE. REQUESTING TO TALK WITH DR. WALTERS DUE TO PAIN IN LEFT SIDE.
--- NOTE | 2021-09-13 16:05 | SUR.PHASEII ---
DR. WALTERS TO SEE PATIENT, PATIENT FEELING BETTER AND READY TO DISCHARGE HOME.
== END 2021-09-13 16:12 | disposition home or self-care (01) ==
PROVIDERS: PCP Physician Assistant; Visit Provider Obstetrics & Gynecology
PROC: (CPT 49320; principal; 2021-09-13 12:00)
PROC: 0U5B8ZZ Destruction of Endometrium, Via Natural or Artificial Opening Endoscopic (ICD-10-PCS; CPT 58563; 2021-09-13 12:00)
DX: Z30.2 Encounter for sterilization (principal); N92.0 Excessive and frequent menstruation with regular cycle; D27.1 Benign neoplasm of left ovary; N80.3 Endometriosis of pelvic peritoneum; N80.2 Endometriosis of fallopian tube; F41.9 Anxiety disorder, unspecified
CPT/HCPCS: 58563; 58661; 58662; 88302; 88305; A9270; J0330; J1100; J1885; J2250; J2405; J2704; J3010; J7030; J7120

== ENCOUNTER 2021-11-22 13:27 | Outpatient (CLI) | payer OTHER, SELFPAY ==
--- NOTE | ~2021-11-22 | XR_ITS ---
EXAMINATION: XR thoracic spine 3V EXAM DATE: 11/22/2021 13:55 INDICATION: Pain In Thoracic Spine. NKI. TECHNIQUE: Frontal and lateral projections of the thoracic spine as well as lateral swimmers projecti on of the upper thoracic spine for interpretation. There is no prior study for comparison. FINDINGS: There are cholecystectomy clips. There is mild disc disease at C6-7. Otherwise the thoracic disc heights are maintained. Paraspinal soft tissue is unremarkable. There are no acute fractures id entified. IMPRESSION: Mild C6-7 disc disease. Otherwise normal exam. Reviewed, dictated and finalized at location G. [employer]
--- NOTE | ~2021-11-22 | XR_ITS ---
EXAMINATION: XR scapula LT EXAM DATE: 11/22/2021 13:55 INDICATION: Pain In Lt Shoulder Blade. NKI. TECHNIQUE: Frontal, Y projections of the left scapula. There is no prior study for comparison. FINDINGS: There are no acute left scapula fractures or dislocations identified. There are no osteobla stic or osteolytic lesions identified. There is no subcutaneous gas. The soft tissue is unremarkab le. There are no radiopaque foreign bodies. IMPRESSION: 1. Unremarkable XR scapula LT exam. Reviewed, dictated and finalized at location G. S [employer]
== END 2021-11-22 13:28 | disposition home or self-care (01) ==
LOC: ANHIMG 13:30
PROVIDERS: PCP Physician Assistant; Visit Provider Physician Assistant
DX: M47.812 Spondylosis without myelopathy or radiculopathy, cervical region (principal); M54.6 Pain in thoracic spine
CPT/HCPCS: 72072; 73010

== ENCOUNTER 2022-05-24 09:25 | Emergency (ER) | payer OTHER, SELFPAY ==
--- NOTE | ~2022-05-24 | XR_ITS ---
EXAMINATION: XR chest 2V DATE: 05/24/2022 10:09 INDICATION: Heart palpitations TECHNIQUE: PA and lateral views of the chest are obtained. COMPARISON: 04/30/2021 FINDINGS: The lungs are free of acute opacities. No pleural effusion or pneumothorax. The cardiomedia stinal silhouette is normal. There is mild thoracic spondylosis. Surgical clips in the right upper qu adrant are likely from prior cholecystectomy. IMPRESSION: 1. No acute cardiopulmonary abnormality. Reviewed, dictated and finalized at location B.
--- NOTE | 2022-05-24 09:28 | ECG_ITS ---
Measurements Intervals [place] Rate: 95 P: 28 NE: 159 QRS: 16 QRSD: 97 T: 14 QT: 366 QTc: 461 Interpretive Statements SINUS RHYTHM CANNOT RULE OUT INFERIOR MYOCARDIAL INFARCTION, PROBABLY OLD ABNORMAL ECG COMPARED TO ECG 04/30/2021 16:00:49 NO SIGNIFICANT CHANGES Electronically Signed On 05-24-2022 15:20:36 CDT by Raghavendra Griffin M.D.
[2022-05-24 09:31] VITALS: BP 153/109; PULSE 96; RESP 18; TEMP 36.5; O2SAT 100
--- NOTE | 2022-05-24 09:39 | ED.ARRPALP ---
HPI - Arrhythmia/Palpitations General Chief Complaint: Arrhythmia/Palpitations Stated Complaint: HEART PALPITATIONS Time Seen by Provider: 05/24/22 09:33 History of Present Illness HPI narrative: 37-year-old female presents to the emergency room for evaluation of palpitations. Patient states last night, while at rest, she started to experience palpitations. States the palpitations are associated with some mild shortness of breath. States that she can feel the sensation into her jaw. Denies any chest pain or difficulty breathing. States the palpitations were intermittent, where she would feel it for 1 minute and then it would resolve spontaneously for several minutes to hours. Patient states she was having these feelings last night for approximately 4 hours. States she woke up this morning and again began experiencing the palpitations. She works as a PACU nurse, and was placed on the monitor this morning while at work. Was told that she was having and frequent PVCs. Denies any cardiac history. Related Data Home Medications Medication Instructions Recorded Confirmed bupropion HCl 150 mg tablet,12 hr 150 mg PO BID 09/05/21 09/13/21 sustained-release cetirizine 10 mg tablet (Zyrtec) 10 mg PO HS 09/05/21 09/13/21 multivitamin 1 tablet QAM 09/05/21 09/13/21 Allergies Allergy/AdvReac Type Severity Reaction Status Date / Time Sulfa (Sulfonamide Allergy Unknown Hives Verified 05/24/22 09:39 Antibiotics) sulfanilamide Allergy Unknown Hives Verified 05/24/22 09:39 Review of Systems Review of Systems: CONSTITUTIONAL: Denies fever, chills, or sweats. EYES: Denies visual changes, redness, or discharge. ENT: Denies rhinorrhea, congestion, sore throat, or otalgia. CARDIOVASCULAR: Reports palpitations RESPIRATORY: Denies cough or dyspnea. GASTROINTESTINAL: Denies abdominal pain, nausea, vomiting, or diarrhea. GENITOURINARY: Denies dysuria or hematuria. SKIN: Denies rash or itching. MUSCULOSKELETAL: Denies back pain, joint pain, or myalgia. NEUROLOGIC: Denies headache, numbness, dizziness, or weakness. PSYCHIATRIC: Denies anxiety or depression. [facility] Past Medical History Medical History Anxiety Hx of migraines Family History Family History Father Patient's father is Family history of premature coronary heart disease, Onset Age: 35 Autopsy didn't show any coronary heart disease; COD was sudden massive asphyxiation Mother Diabetes mellitus Family history of obesity Hypertension Grandparent Family history of heart disease in male family member before age 55 Diabetes mellitus Family history of malignant neoplasm of urinary bladder Hypertension Cerebrovascular accident Other Family history of arthritis Family history of cardiovascular disease Family history of gout Family history of multiple sclerosis Family history of renal failure Social History Social History Smoking status: Never smoker Second hand tobacco smoke exposure: No Alcohol intake: never Substance use: never Substance use type: does not use Additional living arrangements comments: LIVES WITH CHILDEREN Gender identity (if verbalized by the patient): Female Spiritual care concerns: No Exam Narrative: GENERAL: Well-appearing, well-nourished, no physical limitations, and in no acute distress. HEAD: Normocephalic, atraumatic. EYES: Conjunctivae normal, PERRLA and EOMI. NECK: Supple. No carotid bruits or JVD CHEST: Clear to auscultation. No respiratory distress. No wheezes rales or rhonchi. No tenderness. HEART: Regular rate and rhythm. No murmur heard. Normal peripheral pulses. EXTREMITIES: Normal range of motion. No edema. No clubbing or cyanosis SKIN: Warm, dry, no rash. No noted wounds NEURO: No focal deficits. Brett
[2022-05-24 09:41] LABS: Basophils Absolute Auto 0.1 K/mm3 (0.0-0.1); Basophils Percent Auto 0.8 % (0.2-1.2); Eosinophils Absolute Auto 0.1 K/mm3 (0-0.3); Hematocrit 45.4 % (37.0-47.0); Hemoglobin 14.8 g/dL (12.0-15.0); Immature Granulocyte Absolute 0.02 K/mm3 (0.00-0.031); Immature Granulocyte Percent A 0.3 % (0-0.5); Lymphocytes Absolute Auto 1.72 K/mm3 (0.9-3.2); Lymphocytes Percent Auto 22.5 % (18.3-44.2); Mean Corpuscular HGB Conc 32.6 g/dl (32-36); Mean Corpuscular Hemoglobin 26.4 pg (26-34); Mean Corpuscular Volume 81.1 fl (80-100); Mean Platelet Volume 8.9 fl (7.4-10.4); Monocytes Absolute Auto 0.5 K/mm3 (0.1-0.6); Monocytes Percent Auto 5.9 % (2.6-8.5); Neutrophils Absolute Auto 5.3 K/mm3 (1.3-6.7); Neutrophils Percent Auto 69.5 % (45.5-73.1); Platelet Count Result 302 k/mm3 (150-375); Red Cell Distribution Width 13.6 % (11.5-14.5); White Blood Count 7.7 K/mm3 (4.5-10.0)
[2022-05-24 09:53] LABS: INR 1.1; Partial Thromboplastin Time 28.4 SECONDS (22.3-36.8); Prothrombin Time 13.7 Seconds (11.1-14.7)
[2022-05-24 09:55] LABS: Alanine Aminotransferase 18 U/L (6-35); Alkaline Phosphatase 54 U/L (38-126); Anion Gap 13 mmol/L (8-16); Aspartate Amino Transferase 34 U/L (14-36); Bilirubin,Total 0.7 mg/dL (0.2-1.3); Blood Urea Nitrogen 15 mg/dL (7-17); Carbon Dioxide 25 mmol/L (22-30); Chloride 100 mmol/L (98-107); Estimated CRCL calculation 108 ml/min; Estimated Glomerular Filt Rate > 60; Glucose 132 mg/dL (65-110); Lipase 90 U/L (23-300); Potassium 4.2 mmol/L (3.4-5.0); Sodium 138 mmol/L (137-145)
[2022-05-24 10:03] LABS: Troponin I < 0.012 ng/mL (0.000-0.034)
[2022-05-24 10:30] VITALS: BP 134/89; PULSE 85; RESP 16; O2SAT 98
[2022-05-24 11:55] VITALS: BP 138/85; PULSE 82; RESP 15; O2SAT 99
[2022-05-24 12:50] LABS: Troponin I < 0.012 ng/mL (0.000-0.034)
[2022-05-24 14:13] VITALS: BP 146/86; PULSE 82; RESP 18; O2SAT 99
--- NOTE | 2022-05-28 16:03 | WPDHOLTEREM ---
Holter/Event Monitor Holter/Event Monitor Date of procedure: 05/24/22 Holter/Event Procedure: 24 Hr Holter Monitor Indications: Palpitations Conclusion: 1. 24 hour holter monitor on 05/24/22. 2. Underlying rhythm is sinus rhythm. HR range 46-140 bpm; average HR 70 bpm. 3. There is 1 premature supraventricular complex. No supraventricular tachycardia. 4. There are 1,573 premature ventricular complexes, 1 ventricular couplet, 9 ventricular bigeminy and 37 ventricular trigeminy. No ventricular tachycardia. 5. No sinoatrial or atrioventricular blocks. No significant pauses greater than 2 seconds. 6. Patient reports symptoms of palpitations and axillary pain which demonstrate 69-85 bpm.
== END 2022-05-24 14:14 | disposition home or self-care (01) ==
PROVIDERS: Emergency Medicine; Emergency Provider Nurse Practitioner Family; PCP Physician Assistant
DX: R00.2 Palpitations (principal); F41.9 Anxiety disorder, unspecified; R94.31 Abnormal electrocardiogram [ECG] [EKG]
CPT/HCPCS: 36415; 71046; 80053; 83690; 84443; 84484; 85025; 85610; 85730; 93005; 93225; 93226; 99284

== ENCOUNTER 2022-06-07 07:04 | Outpatient (CLI) | payer OTHER, SELFPAY ==
[2022-06-07 08:10] LABS: Alanine Aminotransferase 19 U/L (6-35); Albumin Level 4.5 g/dL (3.5-5.1); Alkaline Phosphatase 61 U/L (38-126); Anion Gap 11 mmol/L (8-16); Aspartate Amino Transferase 21 U/L (14-36); Bilirubin,Total 0.6 mg/dL (0.2-1.3); Blood Urea Nitrogen 13 mg/dL (7-17); Calcium 9.3 mg/dL (8.4-10.2); Carbon Dioxide 23 mmol/L (22-30); Chloride 104 mmol/L (98-107); Cholesterol 185 mg/dL (0-200); Estimated Glomerular Filt Rate > 60; Glucose 119 mg/dL (65-110); HDL Direct 41 mg/dL; Magnesium 1.9 mg/dL (1.6-2.3); Potassium 4.1 mmol/L (3.4-5.0); Sodium 138 mmol/L (137-145); Triglycerides 140 mg/dL (<150)
[2022-06-07 08:11] LABS: Hemoglobin A1C 5.5 % (<5.7)
[2022-06-07 08:21] LABS: LDL Cholesterol Direct 91 mg/dL
[2022-06-07 09:01] LABS: Free T4 Free Thyroxine 1.17 ng/mL (0.78-2.19)
== END 2022-06-07 07:05 | disposition home or self-care (01) ==
LOC: ANHLAB 07:06
PROVIDERS: PCP Physician Assistant; Visit Provider Physician Assistant
DX: R00.2 Palpitations (principal); Z86.32 Personal history of gestational diabetes; Z13.220 Encounter for screening for lipoid disorders
CPT/HCPCS: 36415; 80053; 80061; 83036; 83735; 84439; 84443

== ENCOUNTER 2022-11-21 10:00 | Outpatient (CLI) | payer OTHER, SELFPAY ==
--- NOTE | 2022-11-21 | EST_ITS ---
Patient Info Name: Kathie Sims Age: 37 years : 1985 Gender: Female Ht: 70 in Wt: 277 lbs BSA: 2.55 m2 HR: 70 bpm BP: 138 / 82 mmHg Heart Rhythm: Sinus Rhythm Technical Quality: Fair Exam Date: 11/21/2022 10:13 AM Exam Location: [facility] Patient Status: Outpatient Admit Date: 11/21/2022 Staff Ordering Physician: SuzetteLucille PA-C Db2 Developer: Natty Moura RDCS Attending Provider: DR. AMARO Exam Type: CA stress echo Study Info Indications - VENTRICULAR PREMATURE DEPOLARTZATION Treadmill exercise stress echocardiogram is performed. Summary 1. 1. Negative Amilcar exercise stress test for ischemic ST changes by ECG criteria. 2. 2. Reduced functional capacity, achieving 8.9 METs of workload. 3. 3. Appropriate HR response to exercise. 4. 4. Appropriate HR recovery at 1 minute post exercise. 5. 5. Negative stress echocardiogram for ischemia by wall motion analysis. 6. 6. Patient informed of the above results. Stress Echo Findings Left Ventricle Appropriate increase in LV endocardial thickening with systole. Appropriate augmentation of contractility with systole. No wall motion abnormality. Left Ventricle Normal LV systolic function, no wall motion abnormality. Protocol: Amilcar Stress ECG Details Stage: REST Duration (min): 1 min : 34 sec Speed (mph): 0.0 Grade (%): 0 HR (bpm): 89 SBP (mmHg): 138 DBP (mmHg): 82 METS: --- Stage: REST Duration (min): 9 min : 34 sec Speed (mph): 0.0 Grade (%): 0 HR (bpm): 119 SBP (mmHg): 138 DBP (mmHg): 82 METS: --- Stage: STAGE 1 Duration (min): 1 min : 0 sec Speed (mph): 1.7 Grade (%): 10 HR (bpm): 122 SBP (mmHg): 138 DBP (mmHg): 82 METS: --- Stage: STAGE 1 Duration (min): 2 min : 0 sec Speed (mph): 1.7 Grade (%): 10 HR (bpm): 131 SBP (mmHg): 138 DBP (mmHg): 82 METS: --- Stage: STAGE 1 Duration (min): 3 min : 0 sec Speed (mph): 1.7 Grade (%): 10 HR (bpm): 136 SBP (mmHg): 182 DBP (mmHg): 85 METS: --- Stage: STAGE 2 Duration (min): 1 min : 0 sec Speed (mph): 2.5 Grade (%): 12 HR (bpm): 149 SBP (mmHg): 182 DBP (mmHg): 85 METS: --- Stage: STAGE 2 Duration (min): 2 min : 0 sec Speed (mph): 2.5 Grade (%): 12 HR (bpm): 155 SBP (mmHg): 198 DBP (mmHg): 84 METS: --- Stage: STAGE 2 Duration (min): 3 min : 0 sec Speed (mph): 2.5 Grade (%): 12 HR (bpm): 162 SBP (mmHg): 198 DBP (mmHg): 84 METS: --- Stage: STAGE 3 Duration (min): 1 min : 0 sec Speed (mph): 3.4 Grade (%): 14 HR (bpm): 173 SBP (mmHg): 198 DBP (mmHg): 84 METS: --- Stage: STAGE 3 Duration (min): 1 min : 1 sec Speed (mph): 0.0 Grade (%): 0 HR (bpm): 173 SBP (mmHg): 198 DBP (mmHg): 84 METS: --- Stage: RECOVERY Duration (min): 0 min : 58 sec Speed (mph): 0.0 Grade (%): 0 HR
== END 2022-11-21 10:01 | disposition home or self-care (01) ==
LOC: ANHCARD 10:00
PROVIDERS: PCP Physician Assistant; Visit Provider Physician Assistant
DX: I49.3 Ventricular premature depolarization (principal)
CPT/HCPCS: 93351

== ENCOUNTER 2023-06-05 07:11 | Outpatient (CLI) | payer OTHER, SELFPAY ==
[2023-06-05 08:59] LABS: Basophils Percent Auto 0.7 % (0.2-1.2); Eosinophils Absolute Auto 0.2 K/mm3 (0-0.3); Eosinophils Percent Auto 2.6 % (0-4.4); Hematocrit 42.4 % (37.0-47.0); Hemoglobin 13.9 g/dL (12.0-15.0); Immature Granulocyte Absolute 0.02 K/mm3 (0.00-0.031); Immature Granulocyte Percent A 0.3 % (0-0.5); Lymphocytes Absolute Auto 1.66 K/mm3 (0.9-3.2); Lymphocytes Percent Auto 27.4 % (18.3-44.2); Mean Corpuscular HGB Conc 32.8 g/dl (32-36); Mean Corpuscular Hemoglobin 26.8 pg (26-34); Mean Corpuscular Volume 81.9 fl (80-100); Mean Platelet Volume 8.4 fl (7.4-10.4); Monocytes Absolute Auto 0.4 K/mm3 (0.1-0.6); Monocytes Percent Auto 6.3 % (2.6-8.5); Neutrophils Absolute Auto 3.8 K/mm3 (1.3-6.7); Neutrophils Percent Auto 62.7 % (45.5-73.1); Platelet Count Result 250 k/mm3 (150-375); Red Blood Count 5.18 M/mm3 (4.2-5.4); Red Cell Distribution Width 13.4 % (11.5-14.5); White Blood Count 6.1 K/mm3 (4.5-10.0)
[2023-06-05 09:08] LABS: Alanine Aminotransferase 17 U/L (6-35); Albumin Level 4.4 g/dL (3.5-5.1); Alkaline Phosphatase 52 U/L (38-126); Anion Gap 9 mmol/L (8-16); Aspartate Amino Transferase 20 U/L (14-36); Bilirubin,Total 0.6 mg/dL (0.2-1.3); Blood Urea Nitrogen 13 mg/dL (7-17); Calcium 8.8 mg/dL (8.4-10.2); Carbon Dioxide 25 mmol/L (22-30); Chloride 104 mmol/L (98-107); Cholesterol 174 mg/dL (0-200); Estimated Glomerular Filt Rate > 60; Glucose 102 mg/dL (65-110); HDL Direct 38 mg/dL; Potassium 4.4 mmol/L (3.4-5.0); Sodium 138 mmol/L (137-145); Triglycerides 105 mg/dL (<150)
[2023-06-05 09:19] LABS: LDL Cholesterol Direct 101 mg/dL
[2023-06-05 09:57] LABS: Free T4 Free Thyroxine 1.34 ng/mL (0.78-2.19)
[2023-06-05 10:07] LABS: Hemoglobin A1C 5.5 % (<5.7)
== END 2023-06-05 07:12 | disposition home or self-care (01) ==
LOC: ANHLAB 07:14
PROVIDERS: PCP Physician Assistant; Visit Provider Physician Assistant
DX: Z86.32 Personal history of gestational diabetes (principal); Z13.220 Encounter for screening for lipoid disorders; Z79.899 Other long term (current) drug therapy; Z13.29 Encounter for screening for other suspected endocrine disorder
CPT/HCPCS: 36415; 80053; 80061; 83036; 84439; 84443; 85025

== ENCOUNTER 2024-07-02 06:59 | Outpatient (CLI) | payer OTHER, SELFPAY ==
[2024-07-02 08:22] LABS: Alanine Aminotransferase 22 U/L (6-35); Albumin Level 4.6 g/dL (3.5-5.1); Alkaline Phosphatase 61 U/L (38-126); Anion Gap 8 mmol/L (4-12); Aspartate Amino Transferase 24 U/L (14-36); Bilirubin,Total 0.7 mg/dL (0.2-1.3); Blood Urea Nitrogen 13 mg/dL (7-17); Calcium 8.9 mg/dL (8.4-10.2); Carbon Dioxide 28 mmol/L (22-30); Chloride 101 mmol/L (98-107); Cholesterol 180 mg/dL (0-200); Estimated Glomerular Filt Rate > 60; Glucose 114 mg/dL (65-110); HDL Direct 39 mg/dL; Sodium 137 mmol/L (137-145); Triglycerides 152 mg/dL (<150)
[2024-07-02 08:25] LABS: Basophils Absolute Auto 0.1 K/mm3 (0.0-0.1); Basophils Percent Auto 0.8 % (0.2-1.2); Eosinophils Absolute Auto 0.2 K/mm3 (0-0.3); Eosinophils Percent Auto 2.8 % (0-4.4); Hematocrit 43.3 % (37.0-47.0); Hemoglobin 14.5 g/dL (12.0-15.0); Immature Granulocyte Absolute 0.01 K/mm3 (0.00-0.031); Immature Granulocyte Percent A 0.2 % (0-0.5); Lymphocytes Absolute Auto 1.36 K/mm3 (0.9-3.2); Lymphocytes Percent Auto 22.3 % (18.3-44.2); Mean Corpuscular HGB Conc 33.5 g/dl (32-36); Mean Corpuscular Hemoglobin 27.6 pg (26-34); Mean Corpuscular Volume 82.3 fl (80-100); Mean Platelet Volume 8.6 fl (7.4-10.4); Monocytes Absolute Auto 0.5 K/mm3 (0.1-0.6); Monocytes Percent Auto 7.5 % (2.6-8.5); Neutrophils Absolute Auto 4.1 K/mm3 (1.3-6.7); Neutrophils Percent Auto 66.4 % (45.5-73.1); Platelet Count Result 256 k/mm3 (150-375); Red Blood Count 5.26 M/mm3 (4.2-5.4); Red Cell Distribution Width 13.1 % (11.5-14.5); White Blood Count 6.1 K/mm3 (4.5-10.0)
[2024-07-02 08:32] LABS: LDL Cholesterol Direct 97 mg/dL
[2024-07-02 08:36] LABS: Hemoglobin A1C 5.9 % (<5.7)
[2024-07-02 08:46] LABS: Thyroid Stimulating Hormone 0.965 uIU/mL (0.465-4.680)
[2024-07-02 09:27] LABS: Free T4 Free Thyroxine 1.14 ng/mL (0.78-2.19)
[2024-07-02 09:30] LABS: Folic Acid > 20.0 ng/mL (2.76->20)
[2024-07-03 16:33] LABS: Insulin Level Total 13.3 uIU/mL
== END 2024-07-02 07:00 | disposition home or self-care (01) ==
PROVIDERS: PCP Physician Assistant; Visit Provider Physician Assistant
DX: Z68.41 Body mass index [BMI] 40.0-44.9, adult (principal); Z13.220 Encounter for screening for lipoid disorders; Z13.1 Encounter for screening for diabetes mellitus; Z13.29 Encounter for screening for other suspected endocrine disorder; Z79.899 Other long term (current) drug therapy
CPT/HCPCS: 36415; 80053; 80061; 82607; 82746; 83036; 83525; 84439; 84443; 85025

== ENCOUNTER 2024-07-21 13:39 | Outpatient (CLI) | payer OTHER, SELFPAY ==
--- NOTE | ~2024-07-21 | XR_ITS ---
XR chest 2V 07/21/2024 13:54 Indication: Deep chronic cough Procedure: 2 view chest Comparison: 05/24/2022 Findings: Right middle lobe consolidation, consistent with pneumonia. No pleural effusion. There are cholecystectomy clips. Heart size normal. No pneumothorax or edema. Impression: 1: Right middle lobe pneumonia. Reviewed, dictated and finalized at location B. Impression: 1: Right middle lobe pneumonia.
== END 2024-07-21 13:40 | disposition home or self-care (01) ==
LOC: ANHIMG 13:42
PROVIDERS: PCP Physician Assistant; Visit Provider Physician Assistant
DX: R05.3 Chronic cough (principal); J18.9 Pneumonia, unspecified organism
CPT/HCPCS: 71046

== ENCOUNTER 2024-11-04 13:43 | Outpatient (CLI) | payer OTHER, SELFPAY ==
--- NOTE | ~2024-11-04 | XR_ITS ---
EXAMINATION: XR chest 2V DATE: 11/04/2024 14:05 INDICATION: Cough. TECHNIQUE: Frontal and lateral views of the chest were obtained. COMPARISON: Chest 2 views 07/21/2024, CT abdomen and pelvis 11/24/2014 FINDINGS: There is no pneumonia, pleural effusion, or pneumothorax. The heart size is normal. IMPRESSION: 1. No acute cardiopulmonary disease. Reviewed, dictated and finalized at location A. CUTTER
--- OUTSIDE RECORDS SUMMARY | 2024-11-04 14:40 | XMS_ITS | Data Portability ---
Author Organization [facility], Main Office Address [address] [place] [address] Assessment No assessment recorded. Plan of Treatment Reminders Order Date Submit Date Provider Last Modified By Organization Details Last Modified Time Details Appointments None recorded. Lab TSH + free T4, serum 023 023 [facility] (Lab), [address] [place] [address], [phone], 3 12:42:35 CMP, serum or plasma [address] (Lab), [address] [place] [address], [phone], 3 12:39:01 CBC w/ auto diff [address] (Lab), [address] [place] [address], [phone], 3 12:39:08 lipid panel, serum [address] (Lab), [address] [place] [address], [phone], 3 12:38:55 HbA1c (hemoglob in A1c), blood [address] (Lab), [address] [place] [address], [phone], 3 12:38:46 Referral None recorded. Procedures None recorded. Surgeries None recorded. Imaging None recorded. Medication Orders Ubrelvy 100 mg tablet 023 023 [facility], [address], [place], [address], 3 16:24:19 Patient TargetsNo targets recorded. Patient InstructionsNo instructions recorded. Reason for Referral None Reported. Results Created Date Observation Date Name Description Value Unit Range Abnormal Flag Note LastModifiedBy Organization Detail LastModifiedTime 05/09/20 21 04/30/2021 XR, chest , 2 view No observ ation record ed. [id number] [facility] [address] [place] [address]-[facility], [place], [address], 11/28/2022 20:56:29 11/23/19 22 11/22/2021 XR, thora cic spine No observ ation record ed. [id number] [facility] (Imaging) [address] [place] [address] [place] [address], [phone], 11/28/2022 20:56:29 11/23/19 22 11/22/2021 XR, scapu la No observ ation record ed. [id number] [facility] (Imaging) [address] [place] [address] [place] [address], [phone], 11/28/2022 20:56:29 06/06/20 22 05/24/2022 anup r monit or No observ ation record ed. [id number] Not Available 11/28/2022 20:56:29 12/01/19 23 11/21/2022 exerc ise stres s test No observ ation record ed. [email or web address] Not Available 2022 16:09:05 Result Notes None recorded. Problems Name Problem SNOMED Code Status Onset Date Resolution Date Notes Provider Name and Address Organization Details Recorded Time Intermittent palpitations 250326425 Active 2021 Not Available [facility] 3 20:55:34 Scapulalgia 71731595 Active 2021 Not Available [facility] 3 20:55:34 Generalized anxiety disorder 28729877 Active 2021 Not Available [facility] 3 20:55:35 Mixed anxiety and depressive disorder 152949462 Active 2021 Not Available [facility] 3 20:55:35 Ventricular premature complex 484002229 Active 2022 Not Available [facility] 3 20:55:35 Thoracic back pain 419748278 Active 2021 Not Available [facility] 3 20:55:35 Depressive disorder 76974111 Active 2021 Not Available [facility] 3 20:55:35 Migraine 59748068 Active 2022 Not Available [facility] 3 20:55:35 Migraine with aura 4657841 Active 2022 VALERIE Amezcua [address] [facility] [address], [place], [address] , [facility] [facility] 3 16:21:51 Problem Notes None recorded. Procedures Surgical History Date Name Laterality Status Provider Name and Address Organization Details Recorded Time dilation and curettage completed Not Available [facility] 11/28/2022 20:54:59 Imaging Results Imaging Date Name Status LastModified by Organiz ation Details LastModified Time 04/30/2021 XR, chest, 2 view completed [id number] [facility] Radiology [address] [facility] [address] [facility], [place], [address], 11/28/2022 20:56:29 11/22/2021 XR, thoracic spine completed [id number] [facility] (Imaging) [address] [place] [address] [place] [address], [phone], 11/28/2022 20:56:29 11/22/2021 XR, scapula completed [id number] [facility] (Imaging) [address] [place] [address] [place] [address], [phone], 11/28/2022 20:56:29 05/24/2022 holter monitor completed [id number] Information not available 11/28/2022 20:56:29 11/21/2022 exercise stress test completed [email or web address] Information not available 06/04/2023 16:09:05 Procedure Notes None recorded. Medical Equipment None Reported. Allergies Allergen ID Allergen Name Allergen Category Reaction Reaction Severity Criticality Documentation Date Start Date Code Code System Note Provider Name and Address Organization Details Recorded Time 89467 Substance with sulfonami de structure and antibacte rial mechanism of action (substanc e) medicatio n hives Not available Not available 11/28/2022 43059 8003 SNOMED Not Available [facility] 20:56:26 Medications Name Sig Start Date Stop Date Status Note LastModified by Organization Details LastModified Time cyclobenzap rine 10 mg tablet TAKE 1 TABLET BY MOUTH THREE TIMES DAILY NEEDED FOR MUSCLE SPASM 11/20 completed Not Available Not Available Not Available buspirone 5 mg tablet TAKE 1 TABLET BY MOUTH TWICE DAILY active Not Available Not Available No t Available bupropion HCl SR 150 mg tablet,12 hr sustained-r elease TAKE 1 TABLET BY MOUTH TWICE DAILY 11/20 completed Not Available Not Available Not Available Novolin N NPH U-100 Insulin isophane 100 unit/mL subcutaneou s susp INJECT 58 UNITS SUBCUTANE OUSLY AT BREAKFAST AND 21 UNITS AT DINNER 05/18 completed Not Available Not Available Not Available hydrocodone 5 mg-acetamin ophen 325 mg tablet TAKE 1 TO 2 TABLETS BY MOUTH EVERY 6 HOURS 11/20 completed Not Available Not Available Not Available ondansetron HCl 4 mg tablet TAKE 1 TABLET BY MOUTH EVERY 6 HOURS NEEDED 05/18 completed Not Available Not Available Not Available phentermine 37.5 mg tablet TAKE 1 TABLET BY MOUTH EVERY DAY 05/18 completed Not Available Not Available Not Available butalbital- acetaminoph en-caffeine 50 mg-325 mg-40 mg tablet TAKE 1 TO 2 TABLETS BY MOUTH BY MOUTH EVERY 6 HOURS NEEDED FOR HEADACHE 05/18 completed Not Available Not Available Not Available Novolin R Regular U-100 Insulin 100 unit/mL injection solution INJECT 28 UNITS SUBCUTANE OUSLY BEFORE BREAKFAST AND INJECT 21 UNITS BEFORE DINNER 05/18 completed Not Available Not Available Not Available omeprazole 20 mg capsule,del ayed release TAKE 1 CAPSULE BY MOUTH ONCE DAILY 05/18 completed Not Available Not Available Not Available ibuprofen 600 mg tablet TAKE 1 TABLET BY MOUTH 4 TIMES DAILY NEEDED FOR FEVER OR PAIN 11/20 completed Not Available Not Available Not Available naproxen 500 mg tablet TAKE 1 TABLET BY MOUTH TWICE DAILY WITH MEALS 05/28 completed Not Available Not Available Not Available medroxyprog esterone 150 mg/mL intramuscul ar syringe INJECT 1 ML INTRAMUSC ULARLY ONCE EVERY 11 TO 13 WEEKS 11/20 completed Not Available Not Available Not Available bupropion HCl XL 150 mg 24 hr tablet, extended release TAKE 1 TABLET BY MOUTH DAILY 2023 active Not Available Not Available Not Avai lable metronidazo le 1 % topical gel APPLY TO THE face BY TOPICAL ROUTE ONCE DAILY ; RUB IN GENTLY AND COMPLETEL Y active Not Available Not Available No t Available Glucosamine 07/01 completed Not Available Not Available Not Available Zyrtec 10 mg capsule Take 1 capsule every day by oral route. 2018 active Not Available Not Available Not Avai lable Aleve 220 mg capsule Take 1 capsule every 12 hours by oral route. 06/04 completed Not Available Not Available Not Available OneTouch Verio test strips USE TO CHECK GLUCOSE FIVE TIMES DAILY DIRECTED 05/18 completed Not Available Not Available Not Available OneTouch Delica Plus Lancet 30 gauge USE TO CHECK GLUCOSE FIVE TIMES DAILY DIRECTED 05/18 completed Not Available Not Available Not Available Ubrelvy 100 mg tablet TAKE 1 TABLET BY MOUTH ONCE DAILY AT ONSET OF MIGRAINE, MAY REPEAT IN 2 HOURS. MAX OF 200MG (2 TABLETS) IN 24 HOURS. active Not Available Not Available No t Available Vitals Date Recorded Body mass index (BMI) Body mass index (BMI) Body mass index (BMI) Body mass index (BMI) Body height Body height Body height Body height Oxygen saturation Oxygen saturation in Arterial blood by Pulse oximetry Oxygen saturation Oxygen saturation in Arterial blood by Pulse oximetry Oxygen saturation Oxygen saturation in Arterial blood by Pulse oximetry Oxygen saturation Oxygen saturation in Arterial blood by Pulse oximetry Heart rate Heart rate Heart rate Heart rate Respiratory rate Respiratory rate Body temperature Body temperature Body temperature Body temperature Body weight Body weight Body weight Body weight Systolic blood pressure Diastolic blood pressure Systolic blood pressure Diastolic blood pressure Systolic blood pressure Diastolic blood pressure Systolic blood pressure Diastolic blood pressure Provider Name and Address Organization Details Last Updated DateTime 3 43.4 kg/m2 42.9 kg/m2 41.4 kg/m2 39.5 kg/m2 177.8 cm 177.8 cm 177.8 cm 177.8 cm 96 % 96 % 99.02 % 99.02 % 98 % 98 % 99 % 99 % 65 /min 90 /min 74 /min 105 /min 16 /min 16 /min 97.7 [degF] 98.1 [degF] 97.3 [degF] 97.8 [degF] 13 7257. 05 g 090003. 12 g 405151. 04 g 546723. 9 g 120 mm[Hg] 80 mm[Hg] 138 mm[Hg] 88 mm[Hg] 138 mm[Hg] 80 mm[Hg] 128 mm[Hg] 88 mm[Hg] Not Available [facility] 3 20:55:21 Date Recorded Body height Body temperature Body mass index (BMI) Body weight Respiratory rate Oxygen saturation Oxygen saturation in Arterial blood by Pulse oximetry Heart rate Systolic blood pressure Diastolic blood pressure Provider Name and Address Organization Details Last Updated DateTime 3 177.8 cm 97.4 [degF] 39.5 kg/m2 803004. 9 g 16 /min 99 % 99 % 79 /min 122 mm[Hg] 80 mm[Hg] JR Calderón [place] [facility] [employer] [facility] 3 16:07:47 Social History Question Answer Notes LastModified by Organizat ion Details LastModified Time Tobacco Smoking Status Never Smoker Not Available [facility] 11/28/2022 20:54:52 Do You Have An Advance Directive? No [id number] Information not available 11/28/2022 What Is Your Level Of Alcohol Consumption? None MIGRATION.00559 56742 Information not available 11/28/2022 If You Are , What Was Your Level Of Alcohol Consumption Prior To ? None MIGRATION.76257 61219 Information not available 11/28/2022 Do You Wear A Helmet When Biking? Yes MIGRATION.47704 05523 Information not available 11/28/2022 What Is Your Level Of Caffeine Consumption? Moderate MIGRATION.60679 95541 Information not available 11/28/2022 In The 14 Days Before Symptom Onset, Have You Had Close Contact With A Laboratory-confi rmed COVID-19 While That Case Was Ill? No MIGRATION.90753 95055 Information not available 11/28/2022 In The 14 Days Before Symptom Onset, Have You Had Close Contact With A Person Who Is Under Investigation For COVID-19 While That Person Was Ill? No MIGRATION.76602 13891 Information not available 11/28/2022 Are You Currently Employed? Yes [email or web address] Information not available 05/31/2023 What Type Of Diet Are You Following? SPECIFIC Intermittent Fasting MIGRATION.27832 [id number] Information not available 11/28/2022 What Is The Highest Grade Or Level Of School You Have Completed Or The Highest Degree You Have Received? 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 No MIGRATION.98466 45705 Information not available 11/28/2022 Are There Any Guns Present In Your Home? No MIGRATION.82458 72171 Information not available 11/28/2022 Do You Use Insect Repellent Routinely? Yes MIGRATION.71154 14143 Information not available 11/28/2022 Do You Have A Medical Power Of Bander And Cellophaner Machine? No MIGRATION.06877 78940 Information not available 11/28/2022 What Is Your Relationship Status? MIGRATION.33346 85593 Information not available 11/28/2022 Do You Use Your Seat Belt Or Car Seat Routinely? Yes MIGRATION.33647 10721 Information not available 11/28/2022 Do You Have Smoke And Carbon Monoxide Detectors In Your Home? Yes MIGRATION.52690 52623 Information not available 11/28/2022 Do You Feel Stressed (tense, Restless, Nervous, Or Anxious, Or Unable To Sleep At Night)? OC0370-4 MIGRATION.02325 37121 Information not available 11/28/2022 Do You Use Any Illicit Or Recreational Drugs? No MIGRATION.78180 90791 Information not available 11/28/2022 Do You Use Sunscreen Routinely? Yes MIGRATION.76410 43129 Information not available 11/28/2022 Has Tobacco Cessation Counseling Been Provided? No MIGRATION.36411 70016 Information not available 11/28/2022 Have You Recently Traveled Abroad? No MIGRATION.69830 16698 Information not available 11/28/2022 Do You Have Any Dietary Restrictions? No MIGRATION.38758 27201 Information not available 11/28/2022 Do You Or Have You Ever Used Any Other Forms Of Tobacco Or Nicotine? No MIGRATION.83841 60037 Information not available 11/28/2022 Sex: Unknown Functional Status Question Answer Note LastModified by Organizat ion Details LastModified Time What is your exercise level? Occasional [id number] Information not available 11/28/2022 Mental Status None recorded. Family History Relationship Description Onset Age of this Age Resolved Age Notes LastModified by Organization Details LastModified Time Mother Hypertensive disorder [id number] Not available 11/28/2022 20:54:59 Medical History Condition Response DEPRESSION (INCLUDING POST ) Y DIABETES, TYPE Y ANXIETY DISORDER Y Gynecological HistoryNo gynecological history recorded. Obstetrics History GPAL:G 2 P 0 0 0 2 Type Value Living 2 Total 2 Past Encounters Encounter ID Performer Location Encounter Start Date Encounter Closed Date Diagnosis/Indication Diagnosis SNOMED-CT Code Diagnosis ICD10 Code Diagnosis Note [id number] [facility] [address] [place] [address] 05/18/2021 00:00:00 05/28/2021 23:31:09 [id number] [facility] [address] [place] [address] 11/20/2021 00:00:00 11/26/2021 08:44:41 [id number] [facility] [address] [place] [address] 05/28/2022 00:00:00 05/28/2022 19:15:35 [id number] [facility] [address] [place] [address] 11/02/2022 00:00:00 11/27/2022 17:45:43 [id number] VALERIE Amezcua [facility] [address] [place] [address] 06/04/2023 16:03:38 06/04/2023 16:26:24 Adult health examination 715621353 Z00.01 annual wellness exam completed. 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 no acute issues Long-term drug therapy 962605117 Z79.899 CBC and CMP due Thyroid di sorder screening 162450670 Z13.29 TFT panel due Migraine with aura 16301 06 G43.109 pt failed triptan x 2 in past and cannot take with aura now. also, failed nsaid and tylenol. Ubrelvy 100mg has worked great for use approx every 6 weeks. Health Concerns Section Related Observation LastModified by Organization Detai ls LastModified Time None Recorded Concern Status LastModified by Organization Details LastModified Time None Recorded Advance Directives Directive N: Payers Encounter Date Sequence Insurance Name Policy Number Policy Turpin Covered Member ID Turpin Member ID Guarantor Name 06/04/2023 1 [employer] (PPO) [id number] Kathie Sims [id number] Kathie Sims Notes Date Note Type Note Provider Name and Address Organization Details Recorded Time 2 text/html Back Pain - GeneralReported bypatient.Location:pain is not radiating; upper L side of back that sometimes radiates to her chest Quality:sharp;aching; spasms Severity:feeling the same;pain level 4/10;mild (1-4);interference with sleep Duration:intermittent; present for 1-6 months; still present; went to e/r in Apr for it. Timing:gradual Context:overuse (when it first started but other then that no.) Alleviating Factors:heat (dulls it); massage Aggravating Factors:sitting Associated Symptoms:no fever; no weak limbs; no tingling; no numbness of the legs/feet; no incontinence; no shortness of breath Not Available [facility] 11/26/2021 08:44:41 2 text/html Anxiety/DepressionReporte d bypatient.Quality:increas ed anxiety; Doesnt matter time of day. Severity:denies suicidal ideations; able to maintain relationships;interferenc e with sleep Duration:symptoms lasting over 2 weeks Onset/Timing:still present Context:no major life stressors Modifying Factors:medications as directed Associated Symptoms:denies homicidal ideations; no significant weight gain; no significant weight loss; no visual/auditory hallucinations; no delusions; no shortness of breath; mood good; no anxiety; no crying spells; no panic; no isolation; sleeping well; appetite good; energy good; no apathy; maintaining functionality;palpitation sNotes:pt went to the ER recently with palpitations. PVCs were not on telemetry but not on the 12 lead ekg. Not Available [employer] 05/28/2022 19:15:35 3 text/html PalpitationsReported bypatient.Location:chest Quality:irregular;skippin g Severity:moderate Triggers/Context:at rest;gradual onset;anxiety Associated Symptoms:no dyspnea; no decline in exercise capacity; no fatigue; no associated dizziness;chest pain Not Available [employer] 11/27/2022 17:45:43 3 text/html Anxiety/DepressionReporte d bypatient.Quality:doesnt matter time of day. Severity:denies suicidal ideations; able to maintain relationships; does not interfere with activities of daily living Duration:symptoms lasting over 2 weeks Onset/Timing:stable right now. Context:no major life stressors Associated Symptoms:denies homicidal ideations; no significant weight gain; no significant weight loss; no visual/auditory hallucinations; no delusions; no shortness of breath Wellness VALERIE Amezcua [address] [facility] [facility] [address], [place], [address], [employer] 06/26/2023 00:14:14 OBGyn Episode No OBEpisode recorded.
--- OUTSIDE RECORDS SUMMARY | 2024-11-04 14:41 | XMS_ITS | Data Portability ---
Author Organization [facility] Address [address] [facility] [place] [address] Care Team Providers Care Director Of Catering Name Role Phone INDERJIT ROTHMAN Primary Care Provider Unavailab le Assessment No assessment recorded. Plan of Treatment Reminders Order Date Submit Date Provider Last Modified By Organization Details Last Modified Time Details Appointments ANY 15 2024 03:45P M JEFFY Amezcua Not available Not available Not available Lab TSH + free T4, serum 2023 024 [facility]patient Registration Lab/Ekg, [facility] [address], [address], 09/22/2024 11:50:53 lipid panel, serum 2023 024 [facility]patient Registration Lab/Ekg, [facility] [address], [address], 09/22/2024 11:50:31 CMP, serum or plasma 2023 024 [facility] Outpatient Registration Lab/Ekg, [facility] [address], [place], [address], 09/22/2024 11:50:17 CBC w/ auto diff 2023 024 [facility] Outpatient Registration Lab/Ekg, [address] [facility] [address], [address], 09/21/2024 10:56:07 vitami n B12 + folate , serum or blood 2023 024 [facility] Outpatient Registration Lab/Ekg, [address] [facility] [address], [place], [address], 09/22/2024 11:52:04 insuli n, serum 2023 024 [facility] Outpatient Registration Lab/Ekg, [address] [facility] [address], [place], [address], 09/22/2024 11:51:09 HbA1c (hemog lobin A1c), blood 2023 024 [facility] Outpatient Registration Lab/Ekg, [address] [facility] [address], [place], [address], 09/22/2024 11:51:48 Referral None record ed. Procedures None record ed. Surgeries None record ed. Imaging None record ed. Medication Orders None record ed. Patient TargetsNo targets recorded. Patient Instructions Encounter Date Encounter Id Patient Instructions Last Modified By Organization Details Last Modified Time 06/29/2024 [id number] A healthy lifestyle: care instructions [email or web address] Not available 06/29/2024 17:13:46 Reason for Referral None Reported. Results Created Date Observation Date Name Description Value Unit Range Abnormal Flag Note LastModifiedBy Organization Detail LastModifiedTime 07/21/20 24 07/21/2024 XR, chest , 2 view No observ ation record ed. [facility] [address], [place], [address], 07/21/2024 17:54:34 Result Notes None recorded. Problems Name Problem SNOMED Code Status Onset Date Resolution Date Notes Provider Name and Address Organization Details Recorded Time Body mass index 40+ - severely obese 648581129 Active 2023 Taiwo Chaudhari MA null, [place] - [facility] 4 16:52:02 Long-term drug therapy Active 2023 JEFFY Amezcua Attn: Errol hoffman,[address] [facility], [place], [address] [facility] [place] 4 19:09:58 Obesity 748393378 Active 2023 JEFFY Amezcua Attn: Errol hoffman,[address], [place], [address], [place] [facility] 4 19:10:02 Depressive disorder 55185973 Active 2023 JEFFY Amezcua Attn: Errol hoffman,[address], [place], [address], [place] [facility] 4 19:10:10 Generalized anxiety disorder 87338988 Active 2023 JEFFY Amezcua Attn: Errol hoffman,[address] [facility], [place], [address], [place] [facility] 4 19:10:18 Problem Notes None recorded. Procedures Surgical History None recorded. Imaging Results Imaging Date Name Status LastModified by Organiz ation Details LastModified Time 07/21/2024 XR, chest, 2 view completed [facility] [address], [place], [address], 07/21/2024 17:54:34 Procedure Notes None recorded. Medical Equipment None Reported. Allergies Allergen ID Allergen Name Allergen Category Reaction Reaction Severity Criticality Documentation Date Start Date Code Code System Note Provider Name and Address Organization Details Recorded Time 401455 Substance with sulfonami de structure and antibacte rial mechanism of action (substanc e) medicatio n Not available Not available Not available 12/05/2023 32444 8003 SNOMED Not Available Not Available Not Available Medications Name Sig Start Date Stop Date Status Note LastModified by Organization Details LastModified Time buspirone 5 mg tablet Take 1 tablet twice a day by oral route. active Not Available Not Available No t Available azithromycin 250 mg tablet TAKE 2 TABLETS BY MOUTH ON DAY 1, AND THEN TAKE 1 TABLET BY MOUTH ONCE A DAY ON DAY 2 THROUGH DAY 5 active Not Available Not Available No t Available prednisone 20 mg tablet TAKE 2 TABLETS BY MOUTH ONCE DAILY FOR 5 DAYS active Not Available Not Available No t Available losartan 25 mg tablet TAKE 1 TABLET BY MOUTH ONCE DAILY active Not Available Not Available No t Available cefdinir 300 mg capsule TAKE 1 CAPSULE BY MOUTH EVERY 12 HOURS FOR 3 DAYS active Not Available Not Available No t Available bupropion HCl XL 150 mg 24 hr tablet, extended release TAKE 1 TABLET BY MOUTH DAILY 2024 active Not Available Not Available Not Avai lable Zyrtec 10 mg capsule Take by oral route. active prn Not Available Not Available No t Available Ubrelvy 100 mg tablet TAKE 1 TABLET BY MOUTH ONCE DAILY AT ONSET OF MIGRAINE, MAY REPEAT IN 2 HOURS. MAX OF 200MG (2 TABLETS) IN 24 HOURS. active Not Available Not Available No t Available Vitals Date Recorded Respiratory rate Body height Body mass index (BMI) Body weight Oxygen saturation Oxygen saturation in Arterial blood by Pulse oximetry Heart rate Systolic blood pressure Diastolic blood pressure Provider Name and Address Organization Details Last Updated DateTime 4 20 /min 177.8 cm 43.2 kg/m2 709501. 74 g 100 % 100 % 74 /min 128 mm[Hg] 82 mm[Hg] Taiwo Chaudhari MA [facility] 4 16:54:27 Date Recorded Systolic blood pressure Diastolic blood pressure Systolic blood pressure Diastolic blood pressure Provider Name and Address Organization Details Last Updated DateTime 06/29/2024 140 mm[Hg] 100 mm[Hg] 140 mm[Hg] 100 mm[Hg] JEFFY Valencia Attn: Accounting ,[address] [place], [address] , [facility] 4 17:13:18 Social History Question Answer Notes LastModified by Organizat ion Details LastModified Time Tobacco Smoking Status Never Smoker Taiwo Chaudhari MA null, [facility] 06/29/2024 16:51:06 Do You Have An Advance Directive? No Information not available 06/29/2024 What Is Your Level Of Alcohol Consumption? Occasional Information not available 06/29/2024 Are You Blind Or Do You Have Difficulty Seeing? No Glasses Information not available 06/29/2024 What Is Your Level Of Caffeine Consumption? Occasional Soda Information not available 06/29/2024 In The 14 Days Before Symptom Onset, Have You Had Close Contact With A Laboratory-confir med COVID-19 While That Case Was Ill? No Information not available 06/29/2024 In The 14 Days Before Symptom Onset, Have You Had Close Contact With A Person Who Is Under Investigation For COVID-19 While That Person Was Ill? No Information not available 06/29/2024 Have You Been To An Area Known To Be High Risk For COVID-19? No Information not available 06/29/2024 Are You Currently Employed? Yes Information not available 06/29/2024 Are You Deaf Or Do You Have Serious Difficulty Hearing? No Information not available 06/29/2024 What Type Of Diet Are You Following? REGULAR Information not available 06/29/2024 What Is Your Occupation? Rn Information not available 06/29/2024 Are There Any Guns Present In Your Home? No Information not available 06/29/2024 What Was The Date Of Your Most Recent Tobacco Screening? 06/29/2024 Information not available 06/29/2024 What Is Your Relationship Status? Single Information not available 06/29/2024 Do You Use Your Seat Belt Or Car Seat Routinely? Yes Information not available 06/29/2024 Do You Have Smoke And Carbon Monoxide Detectors In Your Home? Yes Information not available 06/29/2024 Do You Use Any Illicit Or Recreational Drugs? No Information not available 06/29/2024 Do You Use Sunscreen Routinely? Yes Information not available 06/29/2024 Has Tobacco Cessation Counseling Been Provided? No Information not available 06/29/2024 Do You Or Have You Ever Used Any Other Forms Of Tobacco Or Nicotine? No Information not available 06/29/2024 Sex: Female Functional Status Question Answer Note LastModified by Organization D etails LastModified Time Are you able to care for yourself? Yes Information n ot available 06/29/2024 Mental Status None recorded. Family History Nothing Reported. Medical History No medical history recorded. Gynecological History Statement/Question Response Menses Monthly N Current Control Method Ablation Obstetrics History GPAL:G 2 P 2 0 0 2 Type Value Full Term 2 Induced 0 Spontaneous 0 Premature 0 Living 2 Total 2 Past Encounters Encounter ID Performer Location Encounter Start Date Encounter Closed Date Diagnosis/Indication Diagnosis SNOMED-CT Code Diagnosis ICD10 Code Diagnosis Note [id number] JEFFY Amezcua [facility] [address] [place] [address] 06/29/2024 16:37:35 06/29/2024 17:28:26 Body mass index 40+ - severely obese 685320595 Z68.41 BMI is 43.2 Obesity 639040706 E66.8 discussed healthy diet, exercise, controllin g carbohydra carisa and added sugars in the diet Adult heal th examination 214844701 Z00.01 Annual wellness exam complete Generalize d anxiety disorder 47392007 F41.1 Anxiety is well-contr olled on BuSpar 5 mg twice daily Depressive disorder 3548 9007 F32.A Depression is well-contr olled on Wellbutrin XL 150 mg daily Long-term drug therapy 426520724 Z79.899 cmp, cbc and b12, folate labs are due Cholesterol screening 27 5720756 Z13.220 Annual fasting lipid panel ordered Diabetes m ellitus screening 273608430 Z13.1 Annual A1c screening ordered Thyroid di sorder screening 887182225 Z13.29 Routine thyroid labs ordered Health Concerns Section Related Observation LastModified by Organization Detai ls LastModified Time None Recorded Concern Status LastModified by Organization Details LastModified Time None Recorded Advance Directives Directive N: Payers Encounter Date Sequence Insurance Name Policy Number Policy Turpin Covered Member ID Turpin Member ID Guarantor Name 06/29/2024 1 [facility] [id number] Kathie Sims [id number] Kathie Sims Notes Date Note Type Note Provider Name and Address Organization Details Recorded Time 06/29/2024 text/html Anxiety/Depressi on Reported bypatient.Notes:Jeffy ford is doing well on combination therapy of Wellbutrin XL 150 mg daily with BuSpar 5 mg twice daily to manage anxiety and depression symptoms. She has no complaints or concerns and no desire to increase any dosing.HeadacheRep orted bypatient.Notes:Ub relvy, infrequent use , maybe once per month or maybe twice in one month then not for 2 months. JEFFY Amezcua Attn: Accounting,[address] [facility], [place], [address], [facility] 06/29/2024 19:10:48 OBGyn Episode No OBEpisode recorded.
--- OUTSIDE RECORDS SUMMARY | 2024-11-04 14:41 | XMS_ITS | Continuity of Care Document ---
Author Organization [facility] Address [address] [place] [address] utive [facility] [address] [place] [address] Phone Care Team Providers Care Small Brake Form Operator Name Role Phone Summer Goncalves Unavailable Unavailable Procedures Procedure Date Eye Exam, New Patient Refraction Advance Directives Directive Yes / No Effective Date File Name No Information Encounters Encounter Description Practice Location Reason(s) For Visit Diagnoses Date Provider Providers Copied on Encounter [facility], [address] [place] [address] [address], [place], [place], [address], [place] tel:[phone] [facility] No Information 6[address] Ivanna Wheeelr. [address] [facility] [address] , [address], [place], [address], [place]. tel:[phone] Family History Family Member Type Diagnosis Age At Onset No Information Payers Payer name Insurance type Covered democrat ID Authoriza tion(s) No Information Social History [...]
== END 2024-11-04 13:44 | disposition home or self-care (01) ==
PROVIDERS: PCP Physician Assistant; Visit Provider Physician Assistant
DX: R05.9 Cough, unspecified (principal)
CPT/HCPCS: 71046

== ENCOUNTER 2024-11-19 15:50 | Outpatient (CLI) | payer OTHER, SELFPAY ==
--- NOTE | ~2024-11-19 | MM_ITS ---
EXAMINATION: MM screening rocio BI w kiesha HISTORY: Screening TECHNIQUE: Craniocaudal and mediolateral oblique 3-D tomosynthesis images were obtained and synthetic 2-D images were generated. CAD analysis was submitted and interpreted. COMPARISON: No prior studies for comparison. BREAST PARENCHYMAL COMPOSITION: Not dense: There are scattered areas of fibroglandular density. FINDINGS: There is no evidence of suspicious mass, calcification, or architectural distortion to sugg est malignancy in either breast. There has been no suspicious interval change. IMPRESSION: 1. No mammographic evidence of malignancy. 2. Recommend routine screening mammography in one year. BI-RADS Category 1: Negative Reviewed, dictated and finalized at location B. ICAL MASSAGE THERAPIST
--- OUTSIDE RECORDS SUMMARY | 2024-11-19 15:52 | XMS_ITS | Data Portability ---
Author Organization [facility] Address [address] [facility] [place] [address] Care Team Providers Care Legal Associate Name Role Phone INDERJIT ROTHMAN Primary Care Provider Unavailab le Assessment No assessment recorded. Plan of Treatment Reminders Order Date Submit Date Provider Last Modified By Organization Details Last Modified Time Details Appointments ANY 15 2024 03:45P M JEFFY Amezcua Not available Not available Not available Lab TSH + free T4, serum 2023 024 [facility] Outpatient Registration Lab/Ekg, [facility] [address], [address], 09/22/2024 11:50:53 lipid panel, serum 2023 024 [facility] Outpatient Registration Lab/Ekg, [facility] [address], [address], 09/22/2024 11:50:31 CMP, serum or plasma 2023 024 [facility] Outpatient Registration Lab/Ekg, [facility] [address], [address], 09/22/2024 11:50:17 CBC w/ auto diff 2023 024 [facility] Outpatient Registration Lab/Ekg, [address] [facility] [address], [address], 09/21/2024 10:56:07 vitami n B12 + folate , serum or blood 2023 024 [facility] Outpatient Registration Lab/Ekg, [address] [facility] [address], [place], [address], 09/22/2024 11:52:04 insuli n, serum 2023 024 [facility] Outpatient Registration Lab/Ekg, [address] [facility] [address], [place], [address], 09/22/2024 11:51:09 HbA1c (hemog lobin A1c), blood 2023 024 [facility] Outpatient Registration Lab/Ekg, [address] [facility] [address], [place], [address], 09/22/2024 11:51:48 Referral None record ed. Procedures None record ed. Surgeries None record ed. Imaging None record ed. Medication Orders None record ed. Patient TargetsNo targets recorded. Patient Instructions Encounter Date Encounter Id Patient Instructions Last Modified By Organization Details Last Modified Time 06/29/2024 [id number] A healthy lifestyle: care instructions [email or web address] Not available 06/29/2024 17:13:46 Reason for Referral None Reported. Results Created Date Observation Date Name Description Value Unit Range Abnormal Flag Note LastModifiedBy Organization Detail LastModifiedTime 07/21/20 24 07/21/2024 XR, chest , 2 view No observ ation record ed. [address], [place], [address], 07/21/2024 17:54:34 11/04/19 25 11/04/2024 XR, chest , 2 view No observ ation record ed. [address], [place], [address], 11/04/2024 19:36:56 Result Notes None recorded. Problems Name Problem SNOMED Code Status Onset Date Resolution Date Notes Provider Name and Address Organization Details Recorded Time Body mass index 40+ - severely obese 211446056 Active 2023 Taiwo Chaudhari [place] null, [place] [facility] 16:52:02 Long-term drug therapy Active 2023 JEFFY Amezcua Attn: Accountin g,[address], [place], [address], [place] [facility] 4 19:09:58 Obesity 071001486 Active 2023 JEFFY Amezcua Attn: Accountin g,[address] [facility] [address], [place], [address], [place] [facility] 4 19:10:02 Depressive disorder 26499761 Active 2023 JEFFY Amezcua Attn: Accountin g,[address] [facility] [facility] [address], [place], [address], [place] [facility] 4 19:10:10 Generalized anxiety disorder 15311334 Active 2023 JEFFY Amezcua Attn: Accountin g,[address], [place], [address], [place] [facility] 19:10:18 Problem Notes None recorded. Procedures Surgical History None recorded. Imaging Results Imaging Date Name Status LastModified by Organiz ation Details LastModified Time 07/21/2024 XR, chest, 2 view completed [address] [place] [address], [address], 07/21/2024 17:54:34 11/04/2024 XR, chest, 2 view completed [address] [place] [address], [address], 11/04/2024 19:36:56 Procedure Notes None recorded. Medical Equipment None Reported. Allergies Allergen ID Allergen Name Allergen Category Reaction Reaction Severity Criticality Documentation Date Start Date Code Code System Note Provider Name and Address Organization Details Recorded Time 186864 Substance with sulfonami de structure and antibacte rial mechanism of action (substanc e) medicatio n Not available Not available Not available 12/05/2023 36972 8003 SNOMED Not Available Not Available Not [...] 4 20 /min 177.8 cm 43.2 kg/m2 362605. 74 g 100 % 100 % 74 /min 128 mm[Hg] 82 mm[Hg] Taiwo Chaudhari MA [facility] 4 16:54:27 Date Recorded Systolic blood pressure Diastolic blood pressure Systolic blood pressure Diastolic blood pressure Provider Name and Address Organization Details Last Updated DateTime 06/29/2024 140 mm[Hg] 100 mm[Hg] 140 mm[Hg] 100 mm[Hg] JEFFY Valencia Attn: Accounting ,[address] [place], [address] , [facility] 4 17:13:18 Social History Question Answer Notes LastModified by Organizat ion Details LastModified Time Tobacco Smoking Status Never Smoker Taiwo Chaudhari MA null, [facility] 06/29/2024 16:51:06 Do You Have An Advance [...] SNOMED-CT Code Diagnosis ICD10 Code Diagnosis Note [id number] JEFFY Amezcua [facility] [address] [place] [address] 06/29/2024 16:37:35 06/29/2024 17:28:26 Body mass index 40+ - severely obese 419785493 Z68.41 BMI is 43.2 Obesity 131555756 E66.8 discussed healthy diet, exercise, controllin g carbohydra carisa and added sugars in the diet Adult heal th examination 202477970 Z00.01 Annual wellness exam complete Generalize d anxiety disorder 12861422 F41.1 Anxiety is well-contr olled on BuSpar 5 mg twice daily Depressive disorder 3548 9007 F32.A Depression is well-contr olled on Wellbutrin XL 150 mg daily Long-term drug therapy 863739982 Z79.899 cmp, cbc and b12, folate labs are due Cholesterol screening 27 9071779 Z13.220 Annual fasting lipid panel ordered Diabetes m ellitus screening 473521039 Z13.1 Annual A1c screening ordered Thyroid di sorder screening 545465864 Z13.29 Routine thyroid labs ordered Health Concerns Section Related Observation LastModified by Organization Detai ls LastModified Time None Recorded Concern Status LastModified by Organization Details LastModified Time None Recorded Advance Directives Directive N: Payers Encounter Date Sequence Insurance Name Policy Number Policy Turpin Covered Member ID Turpin Member ID Guarantor Name 06/29/2024 1 [employer] [id number] Kathie Sims [id number] Kathie Sims Notes Date Note Type Note [...] 2 months. JEFFY Amezcua Attn: Accounting[address] [place], [address], [place] [facility] 06/29/2024 19:10:48 OBGyn Episode No OBEpisode recorded.
--- OUTSIDE RECORDS SUMMARY | 2024-11-19 15:52 | XMS_ITS | Continuity of Care Document ---
Author Organization [facility] Address [address] [place] [address] utive [facility] [address] [place] [address] Phone Care Team Providers Care Tv Production Assistant Name Role Phone Summer Goncalves Unavailable Unavailable Procedures Procedure Date Eye Exam, New Patient Refraction Advance Directives Directive Yes / No Effective Date File Name No Information Encounters Encounter Description Practice Location Reason(s) For Visit Diagnoses Date Provider Providers Copied on Encounter [facility], [address] [place] [address] [address], [place], [place], [address], [place] tel:[phone] [facility] No Information 6[address] Ivanna Wheeler. [address] [place] , [address], [place], [address], [place]. tel:[phone] Family History Family Member Type Diagnosis Age At Onset No Information Payers Payer name Insurance type Covered green party ID Authoriza tion(s) No Information Social [...]
== END 2024-11-19 15:51 | disposition home or self-care (01) ==
LOC: ANHIMG 15:50
PROVIDERS: PCP Physician Assistant; Visit Provider Obstetrics & Gynecology
DX: Z12.31 Encounter for screening mammogram for malignant neoplasm of breast (principal)
CPT/HCPCS: 77063; 77067

== ENCOUNTER 2025-01-13 13:27 | Outpatient (CLI) | payer OTHER, SELFPAY ==
--- NOTE | ~2025-01-13 | XR_ITS ---
Cervical Spine: AP, lateral, open-mouth views Clinical History: Pain Findings: There is mild reversal of the normal cervical lordosis. The vertebral bodies and posterior elements appear intact. The intervertebral disc spaces are well maintained. Pre-vertebral soft tiss ues are unremarkable. Impression: Mild reversal of the normal cervical lordosis, otherwise unremarkable exam. Reviewed, dictated and finalized at [facility]. Impression: Mild reversal of the normal cervical lordosis, otherwise unremarkable exam.
--- OUTSIDE RECORDS SUMMARY | 2025-01-13 14:38 | XMS_ITS | Continuity of Care Document ---
Author Organization [facility] Address [address] [place] [address] utive [facility] [address] [place] [address] Phone Care Team Providers Care Hide Tanner Name Role Phone Summer Goncalves Unavailable Unavailable Procedures Procedure Date Eye Exam, New Patient Refraction Advance Directives Directive Yes / No Effective Date File Name No Information Encounters Encounter Description Practice Location Reason(s) For Visit Diagnoses Date Provider Providers Copied on Encounter [facility], [address] [place] [address] [address], [place], [place], [address], [place] tel:[phone] [facility] No Information 6[address] Ivanna Wheeler. [address] , [address], [place], [address], [place]. tel:[phone] Family History Family Member Type Diagnosis Age At Onset No Information Payers Payer name Insurance type Covered libertarian ID Authoriza tion(s) No Information Social History [...]
--- OUTSIDE RECORDS SUMMARY | 2025-01-13 14:38 | XMS_ITS | Data Portability ---
Author Organization [facility] Address [address] [facility] [place] [address] Care Team Providers Care Label Tacker Name Role Phone INDERJIT ROTHMAN Primary Care Provider KASSANDRA Fox Party Planner Assessment No assessment recorded. Plan of Treatment Reminders Order Date Submit Date Provider Last Modified By Organization Details Last Modified Time Details Appointments ANY 15 2024 03:45P M VALERIE Amezcua Not available Not available Not available Lab TSH + free T4, serum [address] [place] [address] Outpatient Registration Lab/Ekg, [address] [facility] [address], [place], [address], 12/28/2024 17:06:34 HbA1c (hemog lobin A1c), blood [address] [place] [address] Outpatient Registration Lab/Ekg, [address], [place], [address], 12/28/2024 17:06:34 CMP, serum or plasma [address] [place] [address] Outpatient Registration Lab/Ekg, [address], [place], [address], 12/28/2024 17:06:34 CBC w/ auto diff [address] [place] [address] Outpatient Registration Lab/Ekg, [address] [facility] [address], [place], [address], 12/28/2024 17:06:34 vitami n B12 + folate , serum or blood [address] Outpatient Registration Lab/Ekg, [address], [place], [address], 12/28/2024 17:06:33 lipid panel, serum [address] Outpatient Registration Lab/Ekg, [address] [facility] [address], [place], [address], 12/28/2024 17:06:34 insuli n, serum [address] Outpatient Registration Lab/Ekg, [address] [facility] [address], [place], [address], 12/28/2024 17:06:34 TSH + free T4, serum 2023 024 [facility] Outpatient Registration Lab/Ekg, [address] [facility] [address], [place], [address], 09/22/2024 11:50:53 lipid panel, serum 2023 024 [facility] Outpatient Registration Lab/Ekg, [address], [place], [address], 09/22/2024 11:50:31 CMP, serum or plasma 2023 024 [facility] Outpatient Registration Lab/Ekg, [address], [place], [address], 09/22/2024 11:50:17 CBC w/ auto diff 2023 024 [facility] Outpatient Registration Lab/Ekg, [address], [place], [address], 09/21/2024 10:56:07 vitami n B12 + folate , serum or blood 2023 024 [facility] Outpatient Registration Lab/Ekg, [address], [place], [address], 09/22/2024 11:52:04 insuli n, serum 2023 024 [facility] Outpatient Registration Lab/Ekg, [address] [facility] [address], [place], [address], 09/22/2024 11:51:09 HbA1c (hemog lobin A1c), blood 2023 024 [facility] Outpatient Registration Lab/Ekg, [address], [place], [address], 09/22/2024 11:51:48 Referral None record ed. Procedures None record ed. Surgeries None record ed. Imaging XR, cervic al spine, 2 or 3 view [address] [address] [facility], [address], [place], [address], 01/11/2025 16:09:43 Medication Orders Ubrelv y 100 mg tablet 2024 025 [facility] [address], [place], [address], 12/28/2024 17:12:20 losart an 25 mg tablet 2024 025 [facility] [address], [place], [address], 12/28/2024 17:03:34 Patient TargetsNo targets recorded. Patient Instructions Encounter Date Encounter Id Patient Instructions Last Modified By Organization Details Last Modified Time 06/29/2024 [id number] A healthy lifestyle: care instructions Not available 06/29/2024 17:13:46 12/28/2024 [id number] A healthy lifestyle: care instructions Not available 12/28/2024 17:03:30 Reason for Referral None Reported. Results Created Date Observation Date Name Description Value Unit Range Abnormal Flag Note LastModifiedBy Organization Detail LastModifiedTime 07/21/20 24 07/21/2024 XR, chest , 2 view No observ ation record ed. [facility] [address], [place], [address], 07/21/2024 17:54:34 11/04/19 25 11/04/2024 XR, chest , 2 view No observ ation record ed. [facility] [address] [facility] [address], [place], [address], 11/04/2024 19:36:56 11/19/1911/19/2024 MAMMO , scree marco, digit al, bilat eral No observ ation record ed. [email or web address] [facility] [address] [facility] [address], [place], [address], 11/20/2024 00:32:54 Result Notes None recorded. Problems Name Problem SNOMED Code Status Onset Date Resolution Date Notes Provider Name and Address Organization Details Recorded Time Body mass index 40+ - severely obese 509478540 Active 2023 Taiwo Chaudhari MA null, [place] - [facility] 4 16:52:02 Long-term drug therapy Active 2023 VALERIE Amezcua Attn: Errol hoffman,[address] [place], [address], [facility] - SI 4 19:09:58 Obesity 464812824 Active 2023 VALERIE Amezcua Attn: Errol hoffman,[address] [place], [address], [place] - [facility] 4 19:10:02 Depressive disorder 82012553 Active 2023 VALERIE Amezcua Attn: Errol g,[address] [place], [address], [place] [facility] 4 19:10:10 Generalized anxiety disorder 07426296 Active 2023 VALERIE Amezcua Attn: Errol hoffman,[address] [place], [address], [place] - [place] 4 19:10:18 Benign essential hypertension 1677348 Active 2024 VALERIE Amezcua Attn: Errol hoffman,[address] [facility], [place], [address], [place] - [facility] 18:45:49 Neck pain 33279853 Active 2024 VALERIE Amezcua Attn: Errol hoffman,[address] [facility], [place], [address], [place] [facility] 18:45:57 Morbid obesity 480215153 Active 2024 VALERIE Amezcua Attn: Errol hoffman,[address] [place], [address], [place] 18:45:58 Migraine 30409067 Active 2024 VALERIE Amezcua Attn: Errol hoffman,[address] [facility], [place], [address], [place] - [facility] 18:46:18 Problem Notes None recorded. Procedures Surgical History None recorded. Imaging Results Imaging Date Name Status LastModified by Organiz ation Details LastModified Time 07/21/2024 XR, chest, 2 view completed [address] [place] [address], [address], 07/21/2024 17:54:34 11/04/2024 XR, chest, 2 view completed [address] [place] [address], [address], 11/04/2024 19:36:56 11/19/2024 MAMMO, screening, digital, bilateral completed [email or web address] [place] [address], [address], 11/20/2024 00:32:54 Procedure Notes None recorded. Medical Equipment None Reported. Allergies Allergen ID Allergen Name Allergen Category Reaction Reaction Severity Criticality Documentation Date Start Date Code Code System Note Provider Name and Address Organization Details Recorded Time 159433 Substance with sulfonami de structure and antibacte rial mechanism of action (substanc e) medicatio n Not available Not available Not available 12/05/2023 84492 8003 SNOMED Not Available Not Available Not Available Medications Name Sig Start Date Stop Date Status Note LastModified by Organization Details LastModified Time buspirone 5 mg tablet TAKE 1 TABLET TWICE A DAY active Not Available Not Available No t Available azithromycin 250 mg tablet TAKE 2 TABLETS BY MOUTH ON DAY 1, AND THEN TAKE 1 TABLET BY MOUTH ONCE A DAY ON DAY 2 THROUGH DAY 5 12/15 completed Not Available Not Available Not Available prednisone 20 mg tablet TAKE 2 TABLETS BY MOUTH ONCE DAILY FOR 5 DAYS 12/28 completed Not Available Not Available Not Available losartan 25 mg tablet TAKE 1 TABLET BY MOUTH ONCE DAILY active Not Available Not Available No t Available cefdinir 300 mg capsule TAKE 1 CAPSULE BY MOUTH EVERY 12 HOURS FOR 3 DAYS 12/28 completed Not Available Not Available Not Available bupropion HCl XL 150 mg 24 hr tablet, extended release TAKE 1 TABLET DAILY active Not Available Not Available No t Available Zyrtec 10 mg capsule Take as needed by oral route. active prn Not Available Not Available No t Available Ubrelvy 100 mg tablet Take by oral route for 20 days. 2024 active Not Available Not Available Not Avai lable Vitals Date Recorded Respiratory rate Body height Body mass index (BMI) Body weight Oxygen saturation Oxygen saturation in Arterial blood by Pulse oximetry Heart rate Systolic blood pressure Diastolic blood pressure Provider Name and Address Organization Details Last Updated DateTime 4 20 /min 177.8 cm 43.2 kg/m2 151055. 74 g 100 % 100 % 74 /min 128 mm[Hg] 82 mm[Hg] Taiwo Chaudhari MA [facility] SI 4 16:54:27 Date Recorded Systolic blood pressure Diastolic blood pressure Systolic blood pressure Diastolic blood pressure Provider Name and Address Organization Details Last Updated DateTime 06/29/2024 140 mm[Hg] 100 mm[Hg] 140 mm[Hg] 100 mm[Hg] VALERIE Valencia Attn: Accounting ,[address] [facility], [place], [address] , [facility] SI 4 17:13:18 Date Recorded Body height Body mass index (BMI) Body weight Oxygen saturation Oxygen saturation in Arterial blood by Pulse oximetry Heart rate Systolic blood pressure Diastolic blood pressure Provider Name and Address Organization Details Last Updated DateTime 177.8 cm 42.3 kg/m2 265187. 75 g 100 % 100 % 78 /min 130 mm[Hg] 82 mm[Hg] Taiwo Chaudhari MA [facility] SI 16:47:33 Date Recorded Systolic blood pressure Diastolic blood pressure Provider Name and Address Organization Details Last Updated DateTime 12/28/2024 130 mm[Hg] 84 mm[Hg] VALERIE Amezcua Attn: Accounting,[address] [facility], [place], [address], [facility] 12/28/2024 17:03:25 Social History Question Answer Notes LastModified by Organizat ion Details LastModified Time Tobacco Smoking Status Never Smoker Taiwo Chaudhari MA null, [facility] 06/29/2024 16:51:06 Do You Have [...] Date Of Your Most Recent Tobacco Screening? 12/28/2024 Information not available 12/28/2024 What Is Your Relationship Status? Single Information [...] 0 Premature 0 Living 2 Total 2 Immunizations Vaccine Type Date Status Note Provider Nam e and Address Organization Details Recorded Time COVID-19, mRNA, LNP-S, PF, 30 mcg/0.3 mL dose 04/04/2021 completed [place], [place] - [facility] 12/28/2024 16:45:18 COVID-19, mRNA, LNP-S, PF, 30 mcg/0.3 mL dose 04/25/2021 completed [place], [place] [facility] 12/28/2024 16:45:18 Influenza, split virus, quadrivalent, PF 09/24/2023 completed [place], [place] - [facility] 12/28/2024 16:45:18 Past Encounters Encounter ID Performer Location Encounter Start Date Encounter Closed Date Diagnosis/Indication Diagnosis SNOMED-CT Code Diagnosis ICD10 Code Diagnosis Note [id number] VALERIE Amezcua [facility] [address] [place] [address] 06/29/2024 16:37:35 06/29/2024 17:28:26 Body mass index 40+ - severely obese 456926192 Z68.41 BMI is 43.2 Obesity 980902191 E66.8 discussed healthy diet, exercise, controllin g carbohydra carisa and added sugars in the diet Adult heal th examination 380565918 Z00.01 Annual wellness exam complete Generalize d anxiety disorder 75719273 F41.1 Anxiety is well-contr olled on BuSpar 5 mg twice daily Depressive disorder 3548 9007 F32.A Depression is well-contr olled on Wellbutrin XL 150 mg daily Long-term drug therapy 335939067 Z79.899 cmp, cbc and b12, folate labs are due Cholesterol screening 27 2412257 Z13.220 Annual fasting lipid panel ordered Diabetes m ellitus screening 037077314 Z13.1 Annual A1c screening ordered Thyroid di sorder screening 325822955 Z13.29 Routine thyroid labs ordered [id number] VALERIE Amezcua [facility] [address] [place] [address] 12/28/2024 16:40:07 12/28/2024 17:13:20 Body mass index 40+ - severely obese 739075441 Z68.41 BMI is 43.2 Morbid obesity 622325665 E66.01 Neck pain 83752295 M54.2 Check plain film x-ray of the C-spine to evaluate for disc spacing in any facet joint arthritis Benign ess ential hypertension 6521367 I10 Blood pressure stable 130/84. Refill losartan 25 mg daily. Follow-up in 6 months Long-term drug therapy 304476623 Z79.899 cmp, cbc and b12, folate labs are due in May before next appointmen t Cholesterol screening 27 6640135 Z13.220 Annual fasting lipid panel ordered for May before next appointmen t Thyroid di sorder screening 645701357 Z13.29 Routine thyroid labs ordered Prediabetes 558667076 R7 3.03 A1c will be due in May Migraine 97475552 G43.90 9 Refill on Ubrelvy needed Health Concerns Section Related Observation LastModified by Organization Detai ls LastModified Time None Recorded Concern Status LastModified by Organization Details LastModified Time None Recorded Advance Directives Directive N: Payers Encounter Date Sequence Insurance Name Policy Number Policy Turpin Covered Member ID Turpin Member ID Guarantor Name 06/29/2024 1 [facility] [id number] Kathie Sims [id number] Kathie Sims 12/28/2024 1 [facility] [id number] Kathie Sims [id number] Kathie Sims Notes Date Note Type Note Provider Name and Address Organization Details Recorded Time 4 text/html Anxiety/DepressionReporte d bypatient.Notes:Patient is doing well on combination therapy of Wellbutrin XL 150 mg daily with BuSpar 5 mg twice daily to manage anxiety and depression symptoms. She has no complaints or concerns and no desire to increase any dosing.HeadacheReported bypatient.Notes:Ubrelvy, infrequent use , maybe once per month or maybe twice in one month then not for 2 months. VALERIE Amezcua Attn: Accounting,[address] [place], [address], [facility] 06/29/2024 19:10:48 5 text/html HypertensionReported bypatient.Notes:Patient is doing well on losartan 25 mg daily. She did feel like she has had more of a stiff and tight neck since starting this medication but she realizes that is likely not contributory. Blood pressure has been stable on all of her times that she has checkedNeck PainReported bypatient.Trauma:no Neurological Complaints:none Pain:aching;worse with movement;worse with activity Pain Duration:months VALERIE Amezcua Attn: Accounting,[address] [facility], [place], [address], [facility] 12/28/2024 18:46:34 OBGyn Episode No OBEpisode recorded.
== END 2025-01-13 13:28 | disposition home or self-care (01) ==
PROVIDERS: PCP Physician Assistant; Visit Provider Physician Assistant
DX: M40.292 Other kyphosis, cervical region (principal)
CPT/HCPCS: 72040

== ENCOUNTER 2025-01-25 13:06 | Outpatient (CLI) | payer OTHER, SELFPAY ==
--- NOTE | ~2025-01-25 | US_ITS ---
Pelvic ultrasound. Clinical History: Pelvic pain Technique: Realtime transabdominal and transvaginal scanning of the pelvis was performed. Color flow Doppler and Doppler spectral analysis were performed. Findings: The uterus is anteverted. The endometrial stripe has a thickness of 4 mm. Myometrium is he terogeneous. There is a small cystic mass versus focal fluid in the endometrial cavity towards the ut erine fundus measuring 1.2 x 0.9 x 1.2 cm. Probable ill-defined fibroid measuring 1.1 cm in diameter towards the fundus. The right ovary measures 2.7 x 1.7 x 2.7 cm. No significant right ovarian or adnexal mass is seen. The left ovary measures 2.5 x 2.4 x 2.5 cm. No significant left ovarian or adnexal mass is seen. There is no evidence of free fluid in the cul de sac. Impression: Heterogeneous myometrium raises the possibility ill-defined fibroids. 1.2 cm cystic area in the uteri ne fundus, as detailed above. Reviewed, dictated and finalized at location . Impression: Heterogeneous myometrium raises the possibility ill-defined fibroids. 1.2 cm cy stic area in the uterine fundus, as detailed above.
--- OUTSIDE RECORDS SUMMARY | 2025-01-25 14:50 | XMS_ITS | Continuity of Care Document ---
Author Organization [facility] Address [address] [place] [address] utive [facility] [address] [place] [address] Phone Care Team Providers Care Green Chain Worker Name Role Phone Summer Goncalves Unavailable Unavailable Procedures Procedure Date Eye Exam, New Patient Refraction Advance Directives Directive Yes / No Effective Date File Name No Information Encounters Encounter Description Practice Location Reason(s) For Visit Diagnoses Date Provider Providers Copied on Encounter [facility], [address] [place] [address] [address], [place], [place], [id number], [place] tel:[phone] [facility] No Information 6[address] Ivanna Wheeler. [address] [facility] [address] , [address], [place], [address], [place]. tel:[phone] Family History Family Member Type Diagnosis Age [...]
--- OUTSIDE RECORDS SUMMARY | 2025-01-25 14:50 | XMS_ITS | Data Portability ---
Author Organization [facility] Address [address] [place] [address] Care Team Providers Care Mechanical Facilities Technician Name Role Phone INDERJIT ROTHMAN Primary Care Provider UnavailKASSANDRA Escobar Grievance And Appeals Coordinator Assessment No assessment recorded. Plan of Treatment Reminders Order Date Submit Date Provider Last Modified By Organization Details Last Modified Time Details Appointments ANY 15 2024 03:45P M VALERIE Amezcua Not available Not available Not available Lab TSH + free T4, serum [address] [place] [address] Outpatient Registration Lab/Ekg, [address] [facility] [address], [place], [address], 12/28/2024 17:06:34 HbA1c (hemog lobin A1c), blood [address] [place] [address] Outpatient Registration Lab/Ekg, [address] [facility] [address], [place], [address], 12/28/2024 17:06:34 CMP, serum or plasma [address] [place] [address] Outpatient Registration Lab/Ekg, [address], [place], [address], 12/28/2024 17:06:34 CBC w/ auto diff [address] [place] [address] Outpatient Registration Lab/Ekg, [address] [facility] [address], [place], [address], 12/28/2024 17:06:34 vitami n B12 + folate , serum or blood [address] Outpatient Registration Lab/Ekg, [address], [place], [address], 12/28/2024 17:06:33 lipid panel, serum [address] Outpatient Registration Lab/Ekg, [address] [facility] [address], [place], [address], 12/28/2024 17:06:34 insuli n, serum [address] Outpatient Registration Lab/Ekg, [address] [facility] [address], [place], [address], 12/28/2024 17:06:34 TSH + free T4, serum [address] [facility] Outpatient Registration Lab/Ekg, [address] [facility] [address], [place], [address], 09/22/2024 11:50:53 lipid panel, serum [address] [facility] Outpatient Registration Lab/Ekg, [address] [facility] [address], [place], [address], 09/22/2024 11:50:31 CMP, serum or plasma [address] [facility] Outpatient Registration Lab/Ekg, [address] [facility] [address], [place], [address], 09/22/2024 11:50:17 CBC w/ auto diff 2023 024 [facility] Outpatient Registration Lab/Ekg, [address], [place], [address], 09/21/2024 10:56:07 vitami n B12 + folate , serum or blood [address] [facility] Outpatient Registration Lab/Ekg, [address], [place], [address], 09/22/2024 11:52:04 insuli n, serum [address] [facility] Outpatient Registration Lab/Ekg, [address] [facility] [address], [place], [address], 09/22/2024 11:51:09 HbA1c (hemog lobin A1c), blood [address] [facility] Outpatient Registration Lab/Ekg, [address], [place], [address], 09/22/2024 11:51:48 Referral None record ed. Procedures None record ed. Surgeries None record ed. Imaging XR, cervic al spine, 2 or 3 view 2024 [facility], [address] [facility] [address], [place], [address], 01/13/2025 17:00:12 Medication Orders Ubrelv y 100 mg tablet 2024 025 [facility] [address], [place], [address], 12/28/2024 17:12:20 losart an 25 mg tablet 2024 025 [facility] [address], [address] [place], [address], 12/28/2024 17:03:34 Patient TargetsNo targets recorded. Patient Instructions Encounter Date Encounter Id Patient Instructions Last Modified By Organization Details Last Modified Time 06/29/2024 [id number] A healthy lifestyle: care instructions Not available 06/29/2024 17:13:46 12/28/2024 [id number] A healthy lifestyle: care instructions Not available 12/28/2024 17:03:30 Reason for Referral None Reported. Results Created Date Observation Date Name Description Value Unit Range Abnormal Flag Note LastModifiedBy Organization Detail LastModifiedTime 07/21/2007/21/2024 XR, chest , 2 view No observ ation record ed. [address], [place], [address], 07/21/2024 17:54:34 11/04/19 25 11/04/2024 XR, chest , 2 view No observ ation record ed. [address], [place], [address], 11/04/2024 19:36:56 11/19/1911/19/2024 MAMMO , scree marco, digit al, bilat eral No observ ation record ed. [email or web address] [id number] [facility] [address], [place], [address], 11/20/2024 00:32:54 01/14/20 25 01/13/2025 XR, cervi burke spine , 2 or 3 view No observ ation record ed. [address], [place], [address], 01/20/2025 15:17:15 Result Notes None recorded. Problems Name Problem SNOMED Code Status Onset Date Resolution Date Notes Provider Name and Address Organization Details Recorded Time Body mass index 40+ - severely obese 811639504 Active 2023 Taiwo Chaudhari MA [facility], [place] - [facility] 4 16:52:02 Long-term drug therapy Active 2023 VALERIE Amezcua Attn: Errol hoffman,[address] [place], [address], [facility] 4 19:09:58 Obesity 162472466 Active 2023 VALERIE Amezcua Attn: Errol hoffman,[address] [place], [address], [facility] 4 19:10:02 Depressive disorder 58704490 Active 2023 VALERIE Amezcua Attn: Errol hoffman,[address] [place], [address], [place] - [facility] 4 19:10:10 Generalized anxiety disorder 63429236 Active 2023 VALERIE Amezcua Attn: Errol hoffman,[address] [facility], [place], [address], [place] [facility] 4 19:10:18 Benign essential hypertension 3455726 Active 2024 VALERIE Amezcua Attn: Errol hoffman,[address] [facility], [place], [address], [place] [facility] 5 18:45:49 Neck pain 36346637 Active 2024 VALERIE Amezcua Attn: Errol hoffman,[address] [place], [address], [place] - [facility] 5 18:45:57 Morbid obesity 338285585 Active 2024 VALERIE Amezcua Attn: Errol hoffman,[address] [facility], [place], [address], [place] [facility] 5 18:45:58 Migraine 92403669 Active 2024 VALERIE Amezcua Attn: Errol hoffman,[address] [facility], [place], [address], [place] - [facility] 5 18:46:18 Problem Notes None recorded. Procedures Surgical History None recorded. Imaging Results Imaging Date Name Status LastModified by [facility] Details LastModified Time 07/21/2024 XR, chest, 2 view completed [address] [place] [address], [address], 07/21/2024 17:54:34 11/04/2024 XR, chest, 2 view completed [address] [place] [address], [address], 11/04/2024 19:36:56 11/19/2024 MAMMO, screening, digital, bilateral completed [email or web address] [place] [address] [place] [address], [address], 11/20/2024 00:32:54 01/13/2025 XR, cervical spine, 2 or 3 view completed [facility] [address] [facility] [address], [place], [address], 01/20/2025 15:17:15 Procedure Notes None recorded. Medical Equipment None Reported. Allergies Allergen ID Allergen Name Allergen Category Reaction Reaction Severity Criticality Documentation Date Start Date Code Code System Note Provider Name and Address Organization Details Recorded Time 221131 Substance with sulfonami de structure and antibacte rial mechanism of action (substanc e) medicatio n Not available Not available Not available 12/05/2023 27857 [id number] SNOMED Not Available Not Available Not [...] 4 20 /min 177.8 cm 43.2 kg/m2 304687. 74 g 100 % 100 % 74 /min 128 mm[Hg] 82 mm[Hg] Taiwo Chaudhari MA [facility] 4 16:54:27 Date Recorded Systolic blood pressure Diastolic blood pressure Systolic blood pressure Diastolic blood pressure Provider Name and Address Organization Details Last Updated DateTime 06/29/2024 140 mm[Hg] 100 mm[Hg] 140 mm[Hg] 100 mm[Hg] VALERIE Valencia Attn: Accounting ,[address] [place], [address] , [facility] 4 17:13:18 Date Recorded Body height Body mass index (BMI) Body weight Oxygen saturation Oxygen saturation in Arterial blood by Pulse oximetry Heart rate Systolic blood pressure Diastolic blood pressure Provider Name and Address Organization Details Last Updated DateTime 177.8 cm 42.3 kg/m2 547045. 75 g 100 % 100 % 78 /min 130 mm[Hg] 82 mm[Hg] KEO [facility] 5 16:47:33 Date Recorded Systolic blood pressure Diastolic blood pressure Provider Name and Address Organization Details Last Updated DateTime 12/28/2024 130 mm[Hg] 84 mm[Hg] VALERIE Amezcua Attn: Accounting, [place], [address], [facility] 12/28/2024 17:03:25 Social History Question Answer Notes LastModified by Organizat ion Details LastModified Time Tobacco Smoking Status Never Smoker Taiwo Chaudhari MA null, [facility] 06/29/2024 16:51:06 Do You Have An Advance [...] PF, 30 mcg/0.3 mL dose 04/04/2021 completed Taiwo Chaudhari [place] null, [place] [facility] 12/28/2024 16:45:18 COVID-19, mRNA, LNP-S, PF, 30 mcg/0.3 mL dose 04/25/2021 completed Taiwo Chaudh[place], [place] [facility] 12/28/2024 16:45:18 Influenza, split virus, quadrivalent, PF 09/24/2023 completed Taiwo Chaudhari [place], [place] [facility] 12/28/2024 16:45:18 Past Encounters Encounter ID Performer Location Encounter Start Date Encounter Closed Date Diagnosis/Indication Diagnosis SNOMED-CT Code Diagnosis ICD10 Code Diagnosis Note [id number] VALERIE Amezcua [facility] [employer] [address] [place] [address] 06/29/2024 16:37:35 06/29/2024 17:28:26 Body mass index 40+ - severely obese 874106134 Z68.41 BMI is 43.2 Obesity 014319582 E66.8 discussed healthy diet, exercise, controllin g carbohydra carisa and added sugars in the diet Adult heal th examination 037592302 Z00.01 Annual wellness exam complete Generalize d anxiety disorder 20039450 F41.1 Anxiety is well-contr olled on BuSpar 5 mg twice daily Depressive disorder 3548 9007 F32.A Depression is well-contr olled on Wellbutrin XL 150 mg daily Long-term drug therapy 795700402 Z79.899 cmp, cbc and b12, folate labs are due Cholesterol screening 27 8964823 Z13.220 Annual fasting lipid panel ordered Diabetes m ellitus screening 129781454 Z13.1 Annual A1c screening ordered Thyroid di sorder screening 702219180 Z13.29 Routine thyroid labs ordered [id number] VALERIE Amezcua [facility] [employer] [address] [place] [address] 12/28/2024 16:40:07 12/28/2024 17:13:20 Body mass index 40+ - severely obese 850719647 Z68.41 BMI is 43.2 Morbid obesity 364221125 E66.01 Neck pain 11356642 M54.2 Check plain film x-ray of the C-spine to evaluate for disc spacing in any facet joint arthritis Benign ess ential hypertension 6125421 I10 Blood pressure stable 130/84. Refill losartan 25 mg daily. Follow-up in 6 months Long-term drug therapy 647000683 Z79.899 cmp, cbc and b12, folate labs are due in May before next appointmen t Cholesterol screening 27 6519685 Z13.220 Annual fasting lipid panel ordered for May before next appointmen t Thyroid di sorder screening 052867136 Z13.29 Routine thyroid labs ordered Prediabetes 661125694 R7 3.03 A1c will be due in May Migraine 42381460 G43.90 9 Refill on Ubrelvy needed Health Concerns Section Related Observation LastModified by Organization Detai ls LastModified Time None Recorded Concern Status LastModified by Organization Details LastModified Time None Recorded Advance Directives Directive N: Payers Encounter Date Sequence Insurance Name Policy Number Policy Turpin Covered Member ID Turpin Member ID Guarantor Name 06/29/2024 1 [facility] [id number] Kathie Sims [id number] Kathie Sims 12/28/2024 1 [facility] [id number] Kathie Sims [id number] Kathie Sims Notes Date Note Type Note [...] 2 months. VALERIE Amezcua Attn: Accounting,[address] [facility], [place], [address], [place] - [facility] 06/29/2024 19:10:48 5 text/html HypertensionReported bypatient.Notes:Patient is [...] Pain Duration:months VALERIE Amezcua Attn: Accounting,[address] [place], [address], [facility] 12/28/2024 18:46:34 OBGyn Episode No OBEpisode recorded.
== END 2025-01-25 13:07 | disposition home or self-care (01) ==
PROVIDERS: PCP Physician Assistant; Visit Provider Obstetrics & Gynecology
DX: R10.2 Pelvic and perineal pain (principal)
CPT/HCPCS: 76830; 76856

== ENCOUNTER 2025-07-22 07:28 | Outpatient (CLI) | payer OTHER, SELFPAY ==
--- OUTSIDE RECORDS SUMMARY | 2006-12-13 04:43 | XMS_ITS | Continuity of Care Document ---
Author Organization [facility] Address [address] [place] [address] utive [facility] [address] [place] [address] Phone Care Team Providers Care High Pressure Boiler Operator Name Role Phone Summer Goncalves Unavailable Unavailable Procedures Procedure Date Eye Exam, New Patient Refraction Advance Directives Directive Yes / No Effective Date File Name No Information Encounters Encounter Description Practice Location Reason(s) For Visit Diagnoses Date Provider Providers Copied on Encounter [facility], [address] [place] [address] [address], [place], [place], [id number], [place] tel:[phone] [facility] No Information 6-200 7 Ivanna Wheeler. [address] [place] , [address], [place], [address], [place]. tel:[phone] Family History Family Member Type Diagnosis Age At Onset No Information Payers Payer name Insurance type Covered constitution party ID Authoriza tion(s) No Information Social History Type Description Quantity Date Captured Comments Sex Female Smoking Status No Information Chief Complaint And Reason For Visit No Information Reason For Referral Reason For Referral No Information History Of Present Illness Encounter Date Complaint History Of Prese nt Illness No Information Functional Status Date Functional Assessmen t No Information Instructions Date Instruction Additional Infor mation No Information Assessments Type Assessment Date No Information Patient Care Teams Name Effective Dates (start - stop) Status Members No Information
--- OUTSIDE RECORDS SUMMARY | 2025-07-22 07:32 | XMS_ITS | Data Portability ---
[facility] Organization [facility] [address] [facility] [place] [address] Care Team Providers Care Preschool Education Director Name Role Phone INDERJIT ROTHMAN Primary Care Provider KASSANDRA Fox Optician Assessment No assessment recorded. Plan of Treatment Reminders Order Date Submit Date Provider Last Modified By Organization Details Last Modified Time Details Appointments ANY 15 2024 03:30P M VALERIE Amezcua Not available Not available Not available Lab TSH + free T4, serum 2024 025 [facility] Lab/Ekg, [address], [place], [address], 06/28/2025 09:25:23 HbA1c (hemog lobin A1c), blood 2024 025 [facility] Lab/Ekg, [address], [place], [address], 06/28/2025 09:25:23 CMP, serum or plasma 2024 025 [facility] Lab/Ekg, [address], [place], [address], 06/28/2025 09:25:23 CBC w/ auto diff 2024 025 [facility] Lab/Ekg, [address], [place], [address], 06/28/2025 09:25:23 vitami n B12 + folate , serum or blood 2024 025 [facility] Lab/Ekg, [address], [place], [address], 06/28/2025 09:25:23 lipid panel, serum 2024 025 [facility] Lab/Ekg, [address], [place], [address], 06/28/2025 09:25:23 insuli n, serum 2024 025 [facility] Lab/Ekg, [address], [place], [address], 06/28/2025 09:25:23 TSH + free T4, serum 2023 024 [facility] Registration Lab/Ekg, [address], [place], [address], 09/22/2024 11:50:53 lipid panel, serum 2023 024 [facility] Lab/Ekg, [address], [place], [address], 09/22/2024 11:50:31 CMP, serum or plasma 2023 024 [facility] Registration Lab/Ekg, [address], [place], [address], 09/22/2024 11:50:17 CBC w/ auto diff 2023 024 [facility] Outpatient Registration Lab/Ekg, [address], [place], [address], 09/21/2024 10:56:07 vitami n B12 + folate , serum or blood 2023 024 [facility] Registration Lab/Ekg, [address], [place], [address], 09/22/2024 11:52:04 insuli n, serum 2023 024 [facility] Lab/Ekg, [address] [facility] [address], [place], [address], 09/22/2024 11:51:09 HbA1c (hemog lobin A1c), blood 2023 024 [facility] Lab/Ekg, [address], [place], [address], 09/22/2024 11:51:48 Referral None record ed. Procedures None record ed. Surgeries None record ed. Imaging XR, cervic al spine, 2 or 3 view 2024 [facility], [facility] [address], [place], [address], 01/13/2025 17:00:12 Medication Orders Ubrelv y 100 mg tablet 2024 025 [facility], [place], [address], 12/28/2024 17:12:20 losart an 25 mg tablet 2024 025 [facility], [address], [place], [address], 12/28/2024 17:03:34 Patient TargetsNo targets recorded. Patient Instructions Encounter Date Encounter Id Patient Instructions Last Modified By Organization Details Last Modified Time 06/29/2024 [id number] A healthy lifestyle: care instructions Not available 06/29/2024 17:13:46 12/28/2024 [id number] A healthy lifestyle: care instructions Not available 12/28/2024 17:03:30 Reason for Referral None Reported. Results Created Date Observation Date Name Description Value Unit Range Abnormal Flag Note LastModifiedBy Organization Detail LastModifiedTime 07/21/20 24 07/21/2024 XR, chest , 2 view No observ ation record ed. [address], [place], [address], 07/21/2024 17:54:34 11/04/19 25 11/04/2024 XR, chest , 2 view No observ ation record ed. [address], [place], [address], 11/04/2024 19:36:56 11/19/19 25 11/19/2024 MAMMO , scree marco, digit al, bilat eral No observ ation record ed. [address], [place], [address], 11/20/2024 00:32:54 01/14/20 25 01/13/2025 XR, cervi burke spine , 2 or 3 view No observ ation record ed. [address] [facility], [place], [address], 01/20/2025 15:17:15 01/27/20 25 01/25/2025 US, pelvi s No observ ation record ed. [address] [address], [place], [address], 01/26/2025 22:09:46 Result Notes None recorded. Problems Name Problem SNOMED Code Status Onset Date Resolution Date Notes Provider Name and Address Organization Details Recorded Time Body mass index 40+ - severely obese 918287738 Active 2023 Taiwo Chaudhari MA null, [place] - [facility] 4 16:52:02 Long-term drug therapy Active 2023 VALERIE Amezcua Attn: Errol hoffman,[address] [place], [address], [facility] - [facility] 4 19:09:58 Obesity 333325300 Active 2023 VALERIE Amezcua Attn: Errol hoffman,[address] [place], [address], [place] - [facility] 4 19:10:02 Depressive disorder 33330428 Active 2023 VALERIE Amezcua Attn: Errol hoffman,[address] [place], [address], [place] - [facility] 4 19:10:10 Generalized anxiety disorder 47509292 Active 2023 VALERIE Amezcua Attn: Accountgabe hoffman,[address] [place], [address], [place] - [facility] 4 19:10:18 Benign essential hypertension 5777266 Active 2024 VALERIE Amezcua Attn: Errol hoffman,[address] [place], [address], [place] - [facility] 5 18:45:49 Neck pain 37335511 Active 2024 VALERIE Amezcua Attn: Accountgabe g,[address] [place], [address], [place] - [facility] 5 18:45:57 Morbid obesity 687759397 Active 2024 VALERIE Amezcua Attn: Joselitogabe hoffman,[address] [place], [address], [place] - [facility] 5 18:45:58 Migraine 24279270 Active 2024 VALERIE Amezcua Attn: Joselitogabe hoffman,[address] [place], [address], [place] - [facility] 5 18:46:18 Problem Notes None recorded. Medical Equipment None Reported. Allergies Allergen ID Allergen Name Allergen Category Reaction Reaction Severity Criticality Documentation Date Start Date Code Code System Note Provider Name and Address Organization Details Recorded Time 735518 Substance with sulfonami de structure and antibacte rial mechanism of action (substanc e) medicatio n Not available Not available Not available 12/05/2023 67422 8003 SNOMED VALERIE Amezcua Attn: Joselitogabe hoffman,[address] [place], [address], [facility] - [facility] 16:57:13 Medications Name Sig Start Date Stop Date Status Note LastModified by Organization Details LastModified Time cyclobenzapr ine 10 mg tablet TAKE 1 TABLET BY MOUTH THREE TIMES A DAY NEEDED FOR BACK PAIN active Not Available Not Available No t Available buspirone 5 mg tablet TAKE 1 TABLET BY MOUTH TWICE A DAY active Not Available Not [...] TAKE 1 TABLET BY MOUTH EVERY DAY active Not Available Not Available No t Available cefdinir 300 mg capsule TAKE 1 CAPSULE BY MOUTH EVERY 12 HOURS FOR 3 DAYS 12/28 completed Not Available Not Available Not Available bupropion HCl XL 150 mg 24 hr tablet, extended release TAKE 1 TABLET BY MOUTH EVERY DAY active Not Available Not Available No t Available Zyrtec 10 mg capsule Take as needed by oral route. active prn Not Available Not Available No t Available Ubrelvy 100 mg tablet Take by oral route for 20 days. 2024 active Not Available Not Available Not Damienai labkerry Vitals Date Recorded Systolic And Diastolic Provider Name and Address Organization Details Last Updated DateTime 12/28/2024 130/84 mm[Hg] VALERIE Amezcua Attn: Accounting,[address] [facility], [place], [address], [place] - [facility] 12/28/2024 17:03:25 Date Recorded Body height Body mass index (BMI) Body weight Oxygen saturation Oxygen saturation in Arterial blood by Pulse oximetry Heart rate Systolic And Diastolic Provider Name and Address Organization Details Last Updated DateTime 177.8 cm 42.3 kg/m2 700820. 75 g 100 % 100 % 78 /min 130/82 mm[Hg] Taiwo Chaudhari MA [facility] 16:47:33 Date Recorded Systolic And Diastolic Systolic And Diastolic Provider Name and Address Organization Details Last Updated DateTime 06/29/2024 140/100 mm[Hg] 140/100 mm[Hg] VALERIE Amezcua Attn: Accounting,[address] [facility], [place], [address], [facility] 06/29/2024 17:13:18 Date Recorded Respiratory rate Body height Body mass index (BMI) Body weight Oxygen saturation Oxygen saturation in Arterial blood by Pulse oximetry Heart rate Systolic And Diastolic Provider Name and Address Organization Details Last Updated DateTime 4 20 /min 177.8 cm 43.2 kg/m2 671280. 74 g 100 % 100 % 74 /min 128/82 mm[Hg] Taiwo Chaudhari MA [facility] 4 16:54:27 Social History Question Answer Notes LastModified by Organizat ion Details LastModified Time Tobacco Smoking Status Never Smoker Taiwo Chaudhari MA null, [facility] 06/29/2024 16:51:06 Do You Have An Advance Directive? No Information not available 06/29/2024 Are You Blind [...] No Information not available 06/29/2024 Are You Deaf Or Do You Have Serious Difficulty Hearing? No Information not available 06/29/2024 What Type Of Diet Are You Following? REGULAR Information not available 06/29/2024 Are There Any [...] Been Provided? No Information not available 06/29/2024 Sex: Female Functional Status Question Answer Note LastModified by Organizat ion Details LastModified Time Do you use any illicit or recreational drugs? No Information not available 06/29/2024 Do you or have you ever used any other forms of tobacco or nicotine? No Information not available 06/29/2024 What is your level of alcohol consumption? Occasional Information not available 06/29/2024 Are you currently employed? Yes Information not available 06/29/2024 Are you able to care for yourself independently? Yes Information not available 06/29/2024 What is your occupation? Rn Information not available 06/29/2024 Mental Status None recorded. Family [...] Diagnosis SNOMED-CT Code Diagnosis ICD10 Code Diagnosis IMO Codes Diagnosis Note [id number] Teja Adler MD [facility] Where Was it Filmed [place] [address] [place] [address] 06/29/2024 16:37:35 06/29/2024 17:28:26 Body mass index 40+ - severely obese 963990505 Z68.41 BMI is 43.2 Obesity 119989746 E66.8 discussed healthy diet, exercise, controllin g carbohydra carisa and added sugars in the diet Adult heal th examination 869780967 Z00.01 Annual wellness exam complete Generalize d anxiety disorder 27814154 F41.1 Anxiety is well-contr olled on BuSpar 5 mg twice daily Depressive disorder 3548 9007 F32.A Depression is well-contr olled on Wellbutrin XL 150 mg daily Long-term drug therapy 666004122 Z79.899 cmp, cbc and b12, folate labs are due Cholesterol screening 27 4425201 Z13.220 Annual fasting lipid panel ordered Diabetes m ellitus screening 036288052 Z13.1 Annual A1c screening ordered Thyroid di sorder screening 948012825 Z13.29 Routine thyroid labs ordered [id number] Teja Adler MD [facility] Where Was it Filmed [place] [address] [address] 12/28/2024 16:40:07 12/28/2024 17:13:20 Body mass index 40+ - severely obese 961343490 Z68.41 BMI is 43.2 Morbid obesity 823031147 E66.01 Neck pain 06689648 M54.2 Check plain film x-ray of the C-spine to evaluate for disc spacing in any facet joint arthritis Benign ess ential hypertension 7043535 I10 Blood pressure stable 130/84. Refill losartan 25 mg daily. Follow-up in 6 months Long-term drug therapy 157207656 Z79.899 cmp, cbc and b12, folate labs are due in May before next appointmen t Cholesterol screening 27 6254889 Z13.220 Annual fasting lipid panel ordered for May before next appointmen t Thyroid di sorder screening 997844840 Z13.29 Routine thyroid labs ordered Prediabetes 837281917 R7 3.03 A1c will be due in May Migraine 46203129 G43.90 9 Refill on Ubrelvy needed Health Concerns Section Related Observation LastModified by Organization Detai ls LastModified Time None Recorded Concern Status LastModified by Organization Details LastModified Time None Recorded Advance Directives Directive N: Payers Insurance Date Sequence Insurance Name Policy Number Policy Turpin Covered Member ID Turpin Member ID Guarantor Name 12/30/2024 1 [facility] [id number] Kathie Sims [id number] Kathie Sims Notes Date Note Type Note Provider Name and Address Organization Details Recorded Time 4 text/html Anxiety/DepressionReporte d by PatientPatient is doing well on combination therapy of Wellbutrin XL 150 mg daily with BuSpar 5 mg twice daily to manage anxiety and depression symptoms. She has no complaints or concerns and no desire to increase any dosing. HeadacheReported by PatientUbrelvy, infrequent use , maybe once per month or maybe twice in one month then not for 2 months. VALERIE Amezcua Attn: Accounting,[address] [facility], [place], [address], [facility] 06/29/2024 19:10:48 5 text/html HypertensionReported by PatientPatient is doing well on losartan 25 mg daily. She did feel like she has had more of a stiff and tight neck since starting this medication but she realizes that is likely not contributory. Blood pressure has been stable on all of her times that she has checked Neck PainReported by PatientHPIFor pain, patient reportsaching,worse with movement, andworse with activity. For trauma, patient reportsno. For neurological complaints, patient reportsnone. For pain duration, patient reports___ months. VALERIE Amezcua Attn: Accounting,[address] [facility], [place], [address], [facility] 12/28/2024 18:46:34 OBGyn Episode No OBEpisode recorded.
[2025-07-22 08:04] LABS: Hematocrit 41.2 % (37.0-47.0); Hemoglobin 13.5 g/dL (12.0-15.0); Immature Granulocyte Percent A 0.3 % (0-0.5); Lymphocytes Absolute Auto 1.71 K/mm3 (0.9-3.2); Mean Corpuscular HGB Conc 32.8 g/dl (32-36); Mean Corpuscular Hemoglobin 27.0 pg (26-34); Mean Corpuscular Volume 82.4 fl (80-100); Nucleated Red Blood Cells Absolute Auto 0.000 K/mm3 (0.0-0.012); Nucleated Red Blood Cells Perc 0.0 % (0.0-0.2); Platelet Count Result 244 k/mm3 (150-375); Red Blood Count 5.00 M/mm3 (4.2-5.4); White Blood Count 6.9 K/mm3 (4.5-10.0)
[2025-07-22 08:12] LABS: Hemoglobin A1C 5.5 % (<5.7)
[2025-07-22 08:34] LABS: Alanine Aminotransferase 21 U/L (6-35); Albumin Level 4.2 g/dL (3.5-5.1); Alkaline Phosphatase 64 U/L (38-126); Anion Gap 8 mmol/L (4-12); Aspartate Amino Transferase 22 U/L (14-36); Bilirubin,Total 0.5 mg/dL (0.2-1.3); Blood Urea Nitrogen 16 mg/dL (7-17); Calcium 8.9 mg/dL (8.4-10.2); Carbon Dioxide 27 mmol/L (22-30); Chloride 101 mmol/L (98-107); Cholesterol 177 mg/dL (0-200); Estimated Glomerular Filt Rate > 60; Glucose 117 mg/dL (65-110); HDL Direct 39 mg/dL; Potassium 4.0 mmol/L (3.4-5.0); Sodium 136 mmol/L (137-145); Total Protein 7.4 g/dL (6.3-8.2); Triglycerides 149 mg/dL (<150)
[2025-07-22 08:43] LABS: Free T4 Free Thyroxine 1.00 ng/dL (0.78-2.19)
[2025-07-22 08:57] LABS: Thyroid Stimulating Hormone Reflex 2.260 uIU/mL (0.465-4.68)
[2025-07-22 09:45] LABS: Vitamin B12 583.0 pg/mL (239-931)
== END 2025-07-22 07:29 | disposition home or self-care (01) ==
PROVIDERS: PCP Physician Assistant; Visit Provider Physician Assistant
DX: R73.03 Prediabetes (principal); Z79.899 Other long term (current) drug therapy; Z13.220 Encounter for screening for lipoid disorders; Z13.29 Encounter for screening for other suspected endocrine disorder; Z68.41 Body mass index [BMI] 40.0-44.9, adult
CPT/HCPCS: 36415; 80053; 80061; 82607; 82746; 83036; 83525; 84439; 84443; 85025

== ENCOUNTER 2025-09-12 16:01 | Emergency (ER) | payer OTHER, SELFPAY ==
--- NOTE | ~2025-09-12 | CT_ITS ---
Kathie Wright [place] EXAMINATION: CT abdomen pelvis w con COMPARISON: None HISTORY: RLQ abdominal pain TECHNIQUE: Axial images were obtained through the abdomen, pelvis post administration of IV contrast. Oral contrast was also administered. Coronal reconstruction images were obtained from the axial views. CT scan performed using dose optimization techniques including the following automated exposure control; adjustment of mA and/or kV; use of iterative reconstruction technique. Automatic exposure control was used to reduce radiation dose. Permanent radiation dose record is archived to PACS. FINDINGS: CT abdomen: LUNG BASES: The lung bases are clear. The visualized portions of the heart and pericardium are unremarkable. LIVER: Moderate hepatic steatosis. Portal vein patent. No intrahepatic biliary duct dilatation. SPLEEN: Unremarkable. KIDNEYS: Right Kidney: Unremarkable. No calculi. No hydronephrosis. Left Kidney: Unremarkable. No calculi. No hydronephrosis ADRENAL GLANDS: Left adrenal nodule 1.5 x 1.6 cm incompletely evaluated, outpatient adrenal MRI is suggested. PANCREAS: Unremarkable. GALLBLADDER/BILIARY: Cholecystectomy. STOMACH AND ESOPHAGUS: Visualized stomach and esophagus within normal limits. BOWEL/MESENTERY: Moderate fecal content. Mild diverticulosis. No colitis or diverticulitis. Appendix normal. Mesentery normal. No thickened or dilated loops of small bowel. ADENOPATHY/RETROPERITONEUM: No lymphadenopathy. AORTA/VASCULATURE: Normal caliber aorta. FREE FLUID OR FREE AIR: None. CT pelvis: SOLID ORGANS/REPRODUCTIVE: No adnexal mass noted probable subseptate uterus but incompletely evaluated, ultrasound suggested. BLADDER: Within normal limits. OSSEOUS STRUCTURES: No acute osseous abnormality.No suspicious lesions. OVERLYING SOFT TISSUES: Unremarkable. IMPRESSION: 1. No acute intra-abdominal process. Incidental findings detailed above Reviewed, dictated and finalized at location P. 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
[2025-09-12 16:02] VITALS: BP 155/94; PULSE 96; RESP 19; TEMP 36.6; O2SAT 98
--- OUTSIDE RECORDS SUMMARY | 2025-09-12 16:03 | XMS_ITS | Data Portability ---
Author Organization [facility] Address [address] [place] [address] Care Team Providers Care Electroplating Sales Representative Name Role Phone INDERJIT ROTHMAN Primary Care Provider KASSANDRA [facility] Lead Assessment No assessment recorded. Plan of Treatment Reminders Order Date Submit Date Provider Last Modified By Organization Details Last Modified Time Details Appointments ANY 15 2025 03:30P M VALERIE Amezcua Not available Not available Not available Lab TSH + free T4, serum [address] Outpatient Registration Lab/Ekg, [address], [place], [address], 07/26/2025 16:57:05 HbA1c (hemog lobin A1c), blood 2024 025 [facility] Outpatient Registration Lab/Ekg, [address], [place], [address], 07/26/2025 16:56:52 CMP, serum or plasma [address] Outpatient Registration Lab/Ekg, [address], [place], [address], 07/26/2025 16:56:33 CBC w/ auto diff [address] Outpatient Registration Lab/Ekg, [address], [place], [address], 07/26/2025 16:57:18 vitami n B12 + folate , serum or blood [address] Outpatient Registration Lab/Ekg, [address], [place], [address], 07/26/2025 16:57:46 lipid panel, serum [address] Outpatient Registration Lab/Ekg, [address], [place], [address], 07/26/2025 16:57:12 insuli n, serum 2024 025 [facility] Outpatient Registration Lab/Ekg, [address], [place], [address], 06/28/2025 09:25:23 TSH + free T4, serum 2023 024 [facility] Outpatient Registration Lab/Ekg, [address], [place], [address], 09/22/2024 11:50:53 lipid panel, serum 2023 024 [facility] Outpatient Registration Lab/Ekg, [address], [place], [address], 09/22/2024 11:50:31 CMP, serum or plasma 2023 024 [facility] Outpatient Registration Lab/Ekg, [address], [place], [address], 09/22/2024 11:50:17 CBC w/ auto diff 2023 024 [facility] Outpatient Registration Lab/Ekg, [address], [place], [address], 09/21/2024 10:56:07 vitami n B12 + folate , serum or blood 2023 024 [facility] Outpatient Registration Lab/Ekg, [address], [place], [address], 09/22/2024 11:52:04 insuli n, serum 2023 024 [facility] Outpatient Registration Lab/Ekg, [address] [facility] [facility] [address], [place], [address], 09/22/2024 11:51:09 HbA1c (hemog lobin A1c), blood 2023 024 [facility] Outpatient Registration Lab/Ekg, [address], [place], [address], 09/22/2024 11:51:48 Referral None record ed. Procedures None record ed. Surgeries None record ed. Imaging XR, cervic al spine, 2 or 3 view 2024 [facility] Imaging Center, [address], [place], [address], 01/13/2025 17:00:12 Medication Orders Ubrelv y 100 mg tablet 2024 025 [facility] [address], [place], [address], 12/28/2024 17:12:20 losart an 25 mg tablet 2024 025 [facility] [address], [place], [address], 12/28/2024 17:03:34 Patient TargetsNo targets recorded. Patient Instructions Encounter Date Encounter Id Patient Instructions Last Modified By Organization Details Last Modified Time 06/29/2024 [id number] A healthy lifestyle: care instructions Not available 06/29/2024 17:13:46 12/28/2024 [id number] A healthy lifestyle: care instructions Not available 12/28/2024 17:03:30 07/26/2025 [id number] A healthy lifestyle: care instructions Not available 07/26/2025 16:45:01 Reason for Referral None Reported. Results Created Date Observation Date Name Description Value Unit Range Abnormal Flag Note LastModifiedBy Organization Detail LastModifiedTime 07/21/20 24 07/21/2024 XR, chest , 2 view No observ ation record ed. [address] [facility], [place], [address], 07/21/2024 17:54:34 11/04/19 25 11/04/2024 XR, chest , 2 view No observ ation record ed. [address] [address], [place], [address], 11/04/2024 19:36:56 11/19/19 25 11/19/2024 MAMMO , scree marco, digit al, bilat eral No observ ation record ed. [address] [address], [place], [address], 11/20/2024 00:32:54 01/14/20 25 01/13/2025 XR, cervi burke spine , 2 or 3 view No observ ation record ed. [address] [address], [place], [address], 01/20/2025 15:17:15 01/27/20 25 01/25/2025 US, pelvi s No observ ation record ed. [address] [address], [place], [address], 01/26/2025 22:09:46 Result Notes None recorded. Problems Name Problem SNOMED Code Status Onset Date Resolution Date Notes Provider Name and Address Organization Details Recorded Time Body mass index 40+ - severely obese 546292600 Active 2023 Taiwo Chaudhari [place] null, [place] - [place] 4 16:52:02 Long-term drug therapy Active 2023 VALERIE Amezcua Attn: Errol hoffman,[address] [facility], [place], [address], [facility] - [facility] 4 19:09:58 Obesity 493511595 Active 2023 VALERIE Amezcua Attn: Accountin g,[address] [facility], [place], [address], [place] - [facility] 4 19:10:02 Depressive disorder 31912906 Active 2023 VALERIE Amezcua Attn: Accountin g,[address] [facility], [place], [address], [place] [facility] 4 19:10:10 Generalized anxiety disorder 91647651 Active 2023 VALERIE Amezcua Attn: Accountin g,[address] [facility], [place], [address], [place] [facility] 19:10:18 Benign essential hypertension 5163548 Active 2024 VALERIE Amezcua Attn: Accountin g,[address] [facility], [place], [address], [place] [facility] 18:45:49 Neck pain 39817094 Active 2024 VALERIE Amezcua Attn: Accountin g,[address] [facility], [place], [address], [place] [facility] 18:45:57 Morbid obesity 530373482 Active 2024 VALERIE Amezcua Attn: Accountin g,[address] [facility], [place], [address], [place] [facility] 18:45:58 Migraine 91412989 Active 2024 VALERIE Amezcua Attn: Accountin g,[address] [facility], [place], [address], [place] [facility] 18:46:18 Obese class III 004897725 Active 2024 VALERIE Amezcua Attn: Accountin g,[address] [facility], [place], [address], [place] [facility] 16:44:45 Prediabetes 137676006 Active 2024 VALERIE Amezcua Attn: Errol hoffman,[address] [facility], [place], [address], [facility] - SI 5 16:44:47 Problem Notes None recorded. Medical Equipment None Reported. Allergies Allergen ID Allergen Name Allergen Category Reaction Reaction Severity Criticality Documentation Date Start Date Code Code System Note Provider Name and Address Organization Details Recorded Time 148936 Substance with sulfonami de structure and antibacte rial mechanism of action (substanc e) medicatio n hives Not available Not available 12/05/2023 13166 8003 SNOMED VALERIE Amezcua Attn: Errol hoffman,[address] [facility], [place], [address], [facility] - SI 4 16:57:13 Medications Name Sig Start Date Stop Date Status Note LastModified by Organization Details LastModified Time cyclobenzapr ine 10 mg tablet TAKE 1 TABLET BY MOUTH THREE TIMES A DAY NEEDED FOR BACK PAIN active Not Available Not Available No t Available buspirone 5 mg tablet TAKE 1 TABLET BY MOUTH TWICE A DAY 2024 active Not Available Not Available Not Avai lable azithromycin 250 mg tablet TAKE 2 TABLETS BY MOUTH ON DAY 1, AND THEN TAKE 1 TABLET BY MOUTH ONCE A DAY ON DAY 2 THROUGH DAY 5 12/15 completed Not Available Not Available Not Available prednisone 20 mg tablet TAKE 2 TABLETS BY MOUTH ONCE DAILY FOR 5 DAYS 12/28 completed Not Available Not Available Not Available losartan 25 mg tablet Take 1 tablet every day by oral route for 90 days. active Not Available Not Available No t Available cefdinir 300 mg capsule TAKE 1 CAPSULE BY MOUTH EVERY 12 HOURS FOR 3 DAYS 12/28 completed Not Available Not Available Not Available bupropion HCl XL 150 mg 24 hr tablet, extended release TAKE 1 TABLET BY MOUTH EVERY DAY 2024 active Not Available Not Available Not Avai lable Zyrtec 10 mg capsule Take as needed by oral route. active prn Not Available Not Available No t Available Ubrelvy 100 mg tablet Take by oral route for 20 days. 2024 active Not Available Not Available Not Avai lable Vitals Date Recorded Systolic And Diastolic Provider Name and Address Organization Details Last Updated DateTime 12/28/2024 130/84 mm[Hg] VALERIE Amezcua Attn: Accounting,[address] [place], [address], [facility] 12/28/2024 17:03:25 Date Recorded Body height Body mass index (BMI) Body weight Oxygen saturation Heart rate Systolic And Diastolic Provider Name and Address Organization Details Last Updated DateTime 177.8 cm 42.3 kg/m2 190137. 75 g 100 % 78 /min 130/82 mm[Hg] Taiwo Chaudhari [place] - [place] 5 16:47:33 Date Recorded Systolic And Diastolic Systolic And Diastolic Provider Name and Address Organization Details Last Updated DateTime 06/29/2024 140/100 mm[Hg] 140/100 mm[Hg] VALERIE Amezcua Attn: Accounting,[address] [place], [address], [facility] 06/29/2024 17:13:18 Date Recorded Respiratory rate Body height Body mass index (BMI) Body weight Oxygen saturation Heart rate Systolic And Diastolic Provider Name and Address Organization Details Last Updated DateTime 4 20 /min 177.8 cm 43.2 kg/m2 135835. 74 g 100 % 74 /min 128/82 mm[Hg] Taiwo Chaudhari [place] - [place] 4 16:54:27 Date Recorded Respiratory rate Systolic And Diastolic Provider Name and Address Organization Details Last Updated DateTime 07/26/2025 18 /min 120/80 mm[Hg] VALERIE Amezcua Attn: Accounting,[address] [place], [address], [facility] 07/26/2025 16:52:49 Date Recorded Body height Body mass index (BMI) Body weight Oxygen saturation Heart rate Systolic And Diastolic Provider Name and Address Organization Details Last Updated DateTime 5 177.8 cm 43 kg/m2 236975. 71 g 98 % 78 /min 138/82 mm[Hg] Taiwo Chaudhari MA [facility] 5 16:30:09 Social History Question Answer Notes LastModified by Organizat ion Details LastModified Time Tobacco Smoking Status Never Smoker Takorie Watson, [facility], [place] - [facility] 06/29/2024 16:51:06 Do You Have An Advance [...] Date Of Your Most Recent Tobacco Screening? 07/26/2025 Information not available 07/26/2025 What Is Your Relationship Status? Single Information [...] - [facility] 12/28/2024 16:45:18 Influenza, split virus, trivalent, PF 07/13/2025 completed Not Available [facility] 16:22:02 Past Encounters Encounter ID Performer Location Encounter Start Date Encounter Closed Date Diagnosis/Indication Diagnosis SNOMED-CT Code Diagnosis ICD10 Code Diagnosis IMO Codes Diagnosis Note [id number] Teja Adler MD [facility] - [place] [address] [place] [address] 06/29/2024 16:37:35 06/29/2024 17:28:26 Body mass index 40+ - severely obese 895551904 Z68.41 BMI is 43.2 Obesity 975316089 E66.8 discussed healthy diet, exercise, controllin g carbohydra carisa and added sugars in the diet Adult [facility] examination 566808715 Z00.01 Annual wellness exam complete Generalize d anxiety disorder 66533751 F41.1 Anxiety is well-contr olled on BuSpar 5 mg twice daily Depressive disorder 3540 9007 F32.A Depression is well-contr olled on Wellbutrin XL 150 mg daily Long-term drug therapy 379236183 Z79.899 cmp, cbc and b12, folate labs are due Cholesterol screening 27 7060159 Z13.220 Annual fasting lipid panel ordered Diabetes m ellitus screening 218578890 Z13.1 Annual A1c screening ordered Thyroid di sorder screening 898017209 Z13.29 Routine thyroid labs ordered [id number] Teja Adler MD [facility] [place] [address] [place] [address] 12/28/2024 16:40:07 12/28/2024 17:13:20 Body mass index 40+ - severely obese 883989219 Z68.41 BMI is 43.2 Morbid obesity 762510933 E66.01 Neck pain 91255650 M54.2 Check plain film x-ray of the C-spine to evaluate for disc spacing in any facet joint arthritis Benign ess ential hypertension 9353807 I10 Blood pressure stable 130/84. Refill losartan 25 mg daily. Follow-up in 6 months Long-term drug therapy 336604509 Z79.899 cmp, cbc and b12, folate labs are due in May before next appointmen t Cholesterol screening 27 7732273 Z13.220 Annual fasting lipid panel ordered for May before next appointmen t Thyroid di sorder screening 291401462 Z13.29 Routine thyroid labs ordered Prediabetes 220451903 R7 3.03 A1c will be due in May Migraine 91484902 G43.90 9 Refill on Ubrelvy needed [id number] Teja Adler MD [facility] [place] [address] [place] [address] 07/26/2025 16:20:40 07/26/2025 16:55:17 Obese class III 581509980 E66.813 E66.3 9865722329 discussed healthy diet, exercise, controllin g carbohydra carisa and added sugars in the diet Benign ess ential hypertension 7110196 I10 Blood pressure stable 120/80 on losartan 25 mg daily Prediabetes 713707438 R7 3.03 current a1c down to 5.5%, excellent results on diet modificati ons Long-term drug therapy 537278264 Z79.899 Labs are up-to-date and reviewed Migraine 16389387 G43.90 9 Stable on PRN Ubrelvy 100 mg Adult heal th examination 957147453 Z00.00 6131449 Annual wellness exam completed Generalize d anxiety disorder 99197604 F41.1 Anxiety is well-contr olled on BuSpar 5 mg twice daily Depressive disorder 3548 9007 F32.A Depression is well-contr olled on Wellbutrin XL 150 mg daily Health Concerns Section Related Observation LastModified by Organization Detai ls LastModified Time None Recorded Concern Status LastModified by Organization Details LastModified Time None Recorded Advance Directives Directive N: Payers Insurance Date Sequence Insurance Name Policy Number Policy Turpin Covered Member ID Turpin Member ID Guarantor Name 08/09/2025 1 [facility] [id number] Kathie Sims [id number] Kathie Sims Notes Date Note Type Note [...] 2 months. VALERIE Amezcua Attn: Accounting,[address] [place], [address], [facility] - [facility] 06/29/2024 19:10:48 5 text/html HypertensionReported by PatientPatient [...] reports___ months. VALERIE Amezcua Attn: Accounting,[address], [place], [address], [place] - [facility] 12/28/2024 18:46:34 5 text/html HypertensionReported by PatientPatient is doing well on losartan 25 mg daily. Blood pressure has been stable Patient is here for her annual wellness exam. All labs are up-to-date she brought us a copy to review Migraine history stable on Ubrelvy 100 mg prn as directed. Prediabetes history which has been well-controlled currently at 5.5% A1c based off of diet modifications VALERIE Amezcua Attn: Accounting,[address], [place], [address], [facility] - [facility] 08/08/2025 19:17:11 OBGyn Episode No OBEpisode recorded.
--- OUTSIDE RECORDS SUMMARY | 2025-09-12 16:03 | XMS_ITS | Continuity of Care Document ---
Author Organization [facility], [facility] Address [address] [place] [address] Care Team Providers Care House Sitter Name Role Phone INDERJIT ROTHMAN Primary Care Provider KASSANDRA Fox [facility] Assessment No assessment recorded. Plan of Treatment Reminders Order Date Submit Date Provider Last Modified By Organization Details Last Modified Time Details Appointments ANY 15 026 03:30PM VALERIE Amezcua Not available Not available Not available Lab None record ed. Referral None record ed. Procedures None record ed. Surgeries None record ed. Imaging None record ed. Medication Orders None record ed. Patient TargetsNo targets recorded. Patient Instructions Encounter Date Encounter Id Patient Instructions Last Modified By Organization Details Last Modified Time 07/26/2025 [id number] A healthy lifestyle: care instructions [email or web address] Not available 07/26/2025 16:45:01 Reason for Referral None Reported. Results Created Date Observation Date Name Description Value Unit Range Abnormal Flag Note LastModifiedBy Organization Detail LastModifiedTime Result Notes None recorded. Problems Name Problem SNOMED Code Status Onset Date Resolution Date Notes Provider Name and Address Organization Details Recorded Time Body mass index 40+ - severely obese 482923068 Active 2023 Taiwo Chaudhari MA null, [place] - [facility] 4 16:52:02 Long-term drug therapy Active 2023 VALERIE Amezcua Attn: Errol hoffman,[address] [place], [address] [place] [address] - [facility] 4 19:09:58 Obesity 371200579 Active 2023 VALERIE Amezcua Attn: Accountin g,[address] [facility], [place], [address], [place] - [facility] 4 19:10:02 Depressive disorder 82568720 Active 2023 VALERIE Amezcua Attn: Accountin g,[address] [facility], [place], [address], [place] [facility] 4 19:10:10 Generalized anxiety disorder 40110059 Active 2023 VALERIE Amezcua Attn: Accountin g,[address] [facility], [place], [address], [place] [facility] 4 19:10:18 Benign essential hypertension 6163896 Active 2024 VALERIE Amezcua Attn: Accountin g,[address] [facility], [place], [address], [place] [facility] 5 18:45:49 Neck pain 78638603 Active 2024 VALERIE Amezcua Attn: Accountin g,[address] [facility], [place], [address], [place] [facility] 5 18:45:57 Morbid obesity 544134992 Active 2024 VALERIE Amezcua Attn: Accountin g,[address] [facility], [place], [address], [place] [facility] 5 18:45:58 Migraine 91724305 Active 2024 VALERIE Amezcua Attn: Accountin g,[address] [facility], [place], [address], [place] [facility] 5 18:46:18 Obese class III 645552726 Active 2024 VALERIE Amezcua Attn: Accountin g,[address] [facility], [place], [address], [place] [facility] 16:44:45 Prediabetes 448806164 Active 2024 VALERIE Amezcua Attn: Accountin g,[address] [facility], [place], [address], [place] - [place] 5 16:44:47 Problem Notes None recorded. Medical Equipment None Reported. Allergies Allergen ID Allergen Name Allergen Category Reaction Reaction Severity Criticality Documentation Date Start Date Code Code System Note Provider Name and Address Organization Details Recorded Time 954613 Substance with sulfonami de structure and antibacte rial mechanism of action (substanc e) medicatio n hives Not available Not available 12/05/2023 12785 8003 SNOMED VALERIE Amezcua Attn: Errol hoffman,[address] [facility], [place], [address], [facility] - SI 4 16:57:13 Medications Name Sig [...] Avai lable Vitals Date Recorded Respiratory rate Systolic And Diastolic Provider Name and Address Organization Details Last Updated DateTime 07/26/2025 18 /min 120/80 mm[Hg] VALERIE Amezcua Attn: Accounting,[address] [facility], [place], [address], [facility] 07/26/2025 16:52:49 Date Recorded Body height Body mass index (BMI) Body weight Oxygen saturation Heart rate Systolic And Diastolic Provider Name and Address Organization Details Last Updated DateTime 177.8 cm 43 kg/m2 223212. 71 g 98 % 78 /min 138/82 mm[Hg] Taiwo Chaudhari MA [facility] 16:30:09 Social History Question Answer Notes LastModified by Organizat ion Details LastModified Time Tobacco Smoking Status Never Smoker Taiwo Chaudhari MA null, [facility] 06/29/2024 16:51:06 Do You Have [...] virus, trivalent, PF 07/13/2025 completed Not Available [employer] 2024 16:22:02 Past Encounters Encounter ID Performer Location Encounter Start Date Encounter Closed Date Diagnosis/Indication Diagnosis SNOMED-CT Code Diagnosis ICD10 Code Diagnosis IMO Codes Diagnosis Note [id number] Teja Adler MD [facility] e - Bob Jerez [address] [place] [address] 07/26/2025 16:20:40 07/26/2025 16:55:17 Obese class III 179837219 E66.813 E66.3 2687332751 discussed healthy diet, exercise, controllin g carbohydra carisa and added sugars in the diet Benign ess ential hypertension 9745777 I10 Blood pressure stable 120/80 on losartan 25 mg daily Prediabetes 646484711 R7 3.03 current a1c down to 5.5%, excellent results on diet modificati ons Long-term drug therapy 277306820 Z79.899 Labs are up-to-date and reviewed Migraine 04451467 G43.90 9 Stable on PRN Ubrelvy 100 mg Adult [facility] th examination 530011531 Z00.00 3593959 Annual wellness exam completed Generalize d anxiety disorder 64451995 F41.1 Anxiety is well-contr olled on BuSpar 5 mg twice daily Depressive disorder 3548 9007 F32.A Depression is well-contr olled on Wellbutrin XL 150 mg daily Health Concerns Section Related Observation LastModified by Organization Detai ls LastModified Time None Recorded Concern Status LastModified by Organization Details LastModified Time None Recorded Payers Encounter Date Sequence Insurance Name Policy Number Policy Turpin Covered Member ID Turpin Member ID Guarantor Name 07/26/2025 1 [facility] [id number] Kathie Sims [id number] Kathie Sims Notes Date Note Type Note Provider Name and Address Organization Details Recorded Time 5 text/html HypertensionReported by PatientPatient is doing [...] diet modifications VALERIE Amezcua Attn: Accounting,[address] [facility], [place], [address], [place] - [facility] 08/08/2025 19:17:11 OBGyn Episode No OBEpisode recorded.
[2025-09-12 16:31] VITALS: BP 158/90; PULSE 96; RESP 20; O2SAT 100
[2025-09-12 16:31] LABS: Hematocrit 41.1 % (37.0-47.0); Hemoglobin 13.7 g/dL (12.0-15.0); Immature Granulocyte Percent A 0.3 % (0-0.5); Lymphocytes Absolute Auto 1.49 K/mm3 (0.9-3.2); Mean Corpuscular HGB Conc 33.3 g/dl (32-36); Mean Corpuscular Hemoglobin 27.2 pg (26-34); Mean Corpuscular Volume 81.7 fl (80-100); Nucleated Red Blood Cells Absolute Auto 0.000 K/mm3 (0.0-0.012); Nucleated Red Blood Cells Perc 0.0 % (0.0-0.2); Platelet Count Result 300 k/mm3 (150-375); Red Blood Count 5.03 M/mm3 (4.2-5.4); White Blood Count 9.4 K/mm3 (4.5-10.0)
[2025-09-12 16:33] LABS: BEDSIDEPREGUCG Negative (Negative)
[2025-09-12 16:39] LABS: Add Urine Microscopic? YES; Appearance Urine Clear (Clear); Glucose Urine UA Negative (Negative); Leukocyte Esterase Ur 1+ LEU/UL (Negative); Nitrate Urine Negative (Negative); Non Pathogenic Casts 0-2; Specific Grav Ur 1.027 (1.001-1.035)
[2025-09-12 16:50] LABS: Alanine Aminotransferase 24 U/L (6-35); Albumin Level 4.3 g/dL (3.5-5.1); Alkaline Phosphatase 70 U/L (38-126); Anion Gap 7 mmol/L (4-12); Aspartate Amino Transferase 27 U/L (14-36); Bilirubin,Total 0.4 mg/dL (0.2-1.3); Blood Urea Nitrogen 17 mg/dL (7-17); Calcium 8.9 mg/dL (8.4-10.2); Carbon Dioxide 26 mmol/L (22-30); Chloride 102 mmol/L (98-107); Estimated CRCL calculation 102 ml/min; Estimated Glomerular Filt Rate > 60; Glucose 131 mg/dL (65-110); Lipase 85 U/L (23-300); Potassium 4.0 mmol/L (3.4-5.0); Sodium 135 mmol/L (137-145); Total Protein 7.5 g/dL (6.3-8.2)
--- NOTE | 2025-09-12 16:57 | ED.ABDPAIN ---
HPI - Abdominal Pain General Chief Complaint: Abdominal Pain Stated Complaint: lower abd pain Time Seen by Provider: 09/12/25 16:12 History of Present Illness HPI narrative: 40-year-old female presenting with right-sided lower abdominal lower back pain since earlier today. The pain is constant and intermittently sharp and is accompanied by nausea. Patient states she no longer has her gallbladder but appendix remains intact. Denies vomiting/diarrhea, urinary concerns, vaginal complaints, chest pain/shortness of breath. Related Data Home Medications ?Medication ?Instructions ?Recorded ?Confirmed ?Last Taken ?Type bupropion HCl 150 mg tablet,12 hr 150 mg PO BID 09/05/21 09/13/21 09/12/21 09:00 History sustained-release cetirizine 10 mg tablet (Zyrtec) 10 mg PO HS 09/05/21 09/13/21 09/12/21 06:00 History multivitamin 1 tablet QAM 09/05/21 09/13/21 09/10/21 History Allergies Allergy/AdvReac Type Severity Reaction Status Date / Time Sulfa (Sulfonamide Allergy Unknown Hives Verified 09/12/25 16:01 Antibiotics) sulfanilamide Allergy Unknown Hives Verified 09/12/25 16:01 Review of Systems Review of Systems: All systems reviewed & are unremarkable except as noted in HPI and below PMFSH Past Medical History Medical History Anxiety Hx of migraines Family History Family History Father Patient's father is Family history of premature coronary heart disease, Onset Age: 35 Autopsy didn't show any coronary heart disease; COD was sudden massive asphyxiation Mother Diabetes mellitus Family history of obesity Hypertension Grandparent Family history of heart disease in male family member before age 55 Diabetes mellitus Family history of malignant neoplasm of urinary bladder Hypertension Cerebrovascular accident Other Family history of arthritis Family history of cardiovascular disease Family history of gout Family history of multiple sclerosis Family history of renal failure Social History Social History Smoking status: Never smoker Second hand tobacco smoke exposure: No Alcohol intake: never Substance use: never Substance use type: does not use Living arrangements: with family Additional living arrangements comments: LIVES WITH CHILDEREN Gender identity (if verbalized by the patient): Female Spiritual care concerns: No Exam Narrative: GENERAL: No acute distress. HEAD: Normocephalic, atraumatic. EYES: PERRLA and EOMI. ENT: Nares clear, no rhinorrhea or epistaxis. Mucous membranes moist. Oropharynx without tonsillar hypertrophy exudate or other lesions. Bilateral TMs pearly bob non-bulging NECK: Supple. No adenopathy or masses. No carotid bruits or JVD CHEST: Clear to auscultation. No respiratory distress. No wheezes rales or rhonchi HEART: Regular rate and rhythm. No murmur heard. Normal peripheral pulses. ABDOMEN: Soft, nondistended, normal active bowel sounds. Mild RLQ TTP and right lower back TTP. EXTREMITIES: Normal range of motion. No edema. SKIN: Warm, dry, no rash. NEURO: No focal deficits. Alert and oriented x3. PSYCH: Normal mood and affect Course Vital Signs Vital signs: Vital Signs Temperature 97.8 F 09/12/25 16:02 Pulse Rate 96 09/12/25 16:02 Respiratory Rate 19 09/12/25 16:02 Blood Pressure 155/94 H 09/12/25 16:02 Pulse Oximetry 98 09/12/25 16:02 Oxygen Delivery Room Air 09/12/25 16:02 Temperature 97.8 F 09/12/25 16:02 Pulse Rate 90 09/12/25 17:25 Respiratory Rate 18 09/12/25 17:25 Blood Pressure 138/91 H 09/12/25 17:25 Pulse Oximetry 99 09/12/25 17:25 Oxygen Delivery Room Air 09/12/25 16:02 [facility] Narrative Medical decision making narrative: 40-year-old female presenting with right-sided lower abdominal lower back pain since earlier today. The pain is constant and intermittently sharp and is accompanied by nausea. Patient states she no longer has her gallbladder but appendix remains intact. Denies vomiting/diarrhea, urinary concerns, vaginal complaints, chest pain/shortness of breath. Patient's abdomen is soft without significant pain or signs of surgical abdomen on serial exams. Lab and CT evaluations are reviewed and patient is felt to be a reasonable candidate for outpatient management. Administered Tylenol; patient reports improvement in pain. Discussed radiology's recommendation for an ultrasound of the uterus. Patient verbalized understanding reported that she had one earlier this year. Patient was instructed as to limitations of CT and laboratory evaluation and encouraged to follow with PCP for further evaluation. Given reasons to return to the ED. Differential Diagnosis Differential Diagnosis: Differential diagnostic considerations for acute abdominal pain include surgical abdominal etiology, ischemic bowel, inflammatory bowel disease, gastritis, PUD, gastroenteritis, cardiac etiology, appendicitis, diverticulitis, bowel obstruction, kidney stone, pyelonephritis, abdominal aortic aneurysm, pancreatitis, constipation, endometriosis. Medical Records I have reviewed the following patient records and this information was taken into consideration when formulating the assessment and plan.: previous labs, previous ER visits, previous hospitalizations and previous clinic visits Lab Data MDM Lab Attestation statement: I personally reviewed the patient's lab results. 09/12/25 16:25 09/12/25 16:25 Labs: Lab Results 09/12/25 09/12/25 09/12/25 Range/Units 16:25 16:28 16:31 WBC 9.4 (4.5-10.0) K/mm3 RBC 5.03 (4.2-5.4) M/mm3 Hgb 13.7 (12.0-15.0) g/dL Hct 41.1 (37.0-47.0) % MCV 81.7 (80-100) fl MCH 27.2 (26-34) pg MCHC 33.3 (32-36) g/dl RDW 13.1 (11.5-14.5) % Plt Count 300 (150-375) k/mm3 MPV 8.6 (7.4-10.4) fl Immature Gran % (Auto) 0.3 (0-0.5) % Neut % (Auto) 76.3 H (45.5-73.1) % Lymph % (Auto) 15.9 L (18.3-44.2) % [place] % (Auto) 4.8 (2.6-8.5) % Eos % (Auto) 2.0 (0-4.4) % Baso % (Auto) 0.7 (0.2-1.2) % Lymph # (Auto) 1.49 (0.9-3.2) K/mm3 [place] # (Auto) 0.5 (0.1-0.6) K/mm3 Eos # (Auto) 0.2 (0-0.3) K/mm3 Baso # (Auto) 0.1 (0.0-0.1) K/mm3 Abs Immat Gran (auto) 0.03 (0.00-0.031) K/mm3 Absolute Neuts (auto) 7.1 H (1.3-6.7) K/mm3 Absolute Nucleated RBC 0.000 (0.0-0.012) K/mm3 Nucleated RBC % 0.0 (0.0-0.2) % Sodium 135 L (137-145) mmol/L Potassium 4.0 (3.4-5.0) mmol/L Chloride 102 (98-107) mmol/L Carbon Dioxide 26 (22-30) mmol/L Anion Gap 7 (4-12) mmol/L BUN 17 (7-17) mg/dL Creatinine 0.95 (0.7-1.0) mg/dL Estim Creat Clear Calc 102 ml/min Estimated GFR > 60 (59 - ) Glucose 131 H (65-110) mg/dL Calcium 8.9 (8.4-10.2) mg/dL Total Bilirubin 0.4 (0.2-1.3) mg/dL AST 27 (14-36) U/L ALT 24 (6-35) U/L Alkaline Phosphatase 70 (38-126) U/L Total Protein 7.5 (6.3-8.2) g/dL Albumin 4.3 (3.5-5.1) g/dL Lipase 85 (23-300) U/L Urine Color Yellow (Yellow) Urine Appearance Clear (Clear) Urine pH 5.5 (5.0-9.0) Ur Specific [place] 1.027 (1.001-1.035) Urine Protein Negative (Negative) mg/dL Urine Glucose (UA) Negative (Negative) mg/dL Urine Ketones Trace H (Negative) mg/dL Ur Blood (Man) Negative (Negative) Urine Nitrate Negative (Negative) Urine Bilirubin Negative (Negative) Urine Urobilinogen 0.2 (<2.0) mg/dL Leukocyte Esterase Rfl 1+ H (Negative) RAYMOND/UL Urine RBC 0-2 (0-2) /hpf Urine WBC 11-20 H (0-3) /hpf Ur Squamous Epith Cells Occasional (Few) /hpf Urine Bacteria Rare /hpf Urine Casts 0-2 POC Urine HCG, Qual Negative (Negative) Imaging Data Attestation: I personally reviewed and interpreted this imaging study as follows: Radiologist's impression: ITS Impressions Abdomen/Pelvis CT 09/12/25 17:21 IMPRESSION: 1. No acute intra-abdominal process. Incidental findings detailed above Discharge Plan Discharge Clinical Impression: Abdominal pain Patient Disposition: Home Condition: Stable Instructions: Abdominal Pain (ED) Additional Instructions: Return to the ER if you experience fever, abdominal pain with nausea and vomiting, you are unable to keep down liquids or solids, blood in the stool, pain or burning with urination, blood in the urine or any other symptoms that are concerning to you Small frequent meals. [place] diet. Hydrate with Gatorade and water Follow up with primary care doctor. Patient Language: Syriac Prescriptions: No Action multivitamin Tablet 1 tablet QAM bupropion HCl 150 mg tablet sustained-release 12 hr 150 mg PO BID cetirizine [Zyrtec] 10 mg Tablet 10 mg PO HS hydrocodone-acetaminophen 5-325 mg tablet 1 - 2 tablet PO Q6H Qty: 30 0RF Follow-up/Referrals: Suzette,ADAN Adkins [Primary Care Provider, Unknown]
[2025-09-12] MEDS: ACETAMINOPHEN 500 MG TABLET 1000 MG PO (17:13)
[2025-09-12 17:25] VITALS: BP 138/91; PULSE 90; RESP 18; O2SAT 99
== END 2025-09-12 17:54 | disposition home or self-care (01) ==
PROVIDERS: PCP Physician Assistant
DX: R10.31 Right lower quadrant pain (principal); F41.9 Anxiety disorder, unspecified
CPT/HCPCS: 36415; 74177; 80053; 81001; 81025; 83690; 85025; 87086; 99284; A9270; Q9967